=== PATIENT | female | born 1980 | race American Indian/Alaskan Native ===

== ENCOUNTER 2016-10-11 21:26 | Emergency (ER) | payer MEDICAID ==
[2016-10-11 21:33] VITALS: BP 105/68
--- NOTE | 2016-10-11 21:54 | EDM.PDOC ---
[id number] 4d CHEST PAINS, AMBULANCE Time Seen by Provider: 10/11/16 21:40 Source of Information: Reports: Patient, EMS History Limitations: Reports: No Limitations - History of Present Illness INITIAL COMMENTS - FREE TEXT/NARRATIVE: ED via [facility] with c/o pain now to left back. [place], felt something caught in her throat, vomited 3 times then had chest pain and now moved to her back. Admits meth use 2 weeks ago, ETOH 4 years ago. No cardiac hx. No similar episodes. 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 Musculoskeletal History: Reports: None Neurological History: Reports: None Psychiatric History: Reports: None Endocrine/Metabolic History: Reports: None Hematologic History: Reports: None Immunologic History: Reports: None Oncologic (Cancer) History: Reports: None Dermatologic History: Reports: None Social & Family History - Family History HEENT: Reports: None Cardiac: Reports: None Respiratory: Reports: None GI: Reports: None - Tobacco Use Smoking Status *Q: Heavy Tobacco Smoker Years of Tobacco use: 20 Packs/Tins Daily: 0.5 Used Tobacco, but Quit: No Month Tobacco Last Used: april Second Hand Smoke Exposure: Yes - Alcohol Use Days Per Week of Alcohol Use: 0 - Recreational Drug Use Recreational Drug Use: Yes Drug Use in Last 12 Months: Yes Recreational Drug Type: Reports: Methamphetamine Recreational Drug Use Frequency: Socially Recreational Drug Last Use: 4-14 ED ROS GENERAL - Review of Systems Review Of Systems: See Below Constitutional: Reports: No Symptoms HEENT: Reports: Throat Pain Respiratory: Reports: No Symptoms Cardiovascular: Reports: No Symptoms Endocrine: Reports: No Symptoms GI/Abdominal: Reports: No Symptoms Neurological: Reports: No Symptoms Psychiatric: Reports: No Symptoms Hematologic/Lymphatic: Reports: No Symptoms ED EXAM, GENERAL - Physical Exam Exam: See Below Exam Limited By: No Limitations General Appearance: Alert Ears: Normal External Exam Nose: Normal Inspection Throat/Mouth: Normal Inspection Head: Atraumatic, Normocephalic Neck: Normal Inspection Respiratory/Chest: No Respiratory Distress (Female) Exam: Normal External Exam, Normal Speculum Exam Extremities: Normal Inspection Neurological: Alert Course - Vital Signs Last Recorded V/S: Last Vital Signs Temp 97.0 F 10/11/16 21:29 Pulse 85 10/11/16 21:29 Resp 18 10/11/16 21:29 BP 105/68 10/11/16 21:29 Pulse Ox 97 10/11/16 21:29 - Orders/Labs/Meds Labs: Laboratory Tests 10/11/16 10/11/16 10/11/16 Range/Units 21:42 21:42 22:53 WBC 8.8 (5.0-10.0) 10^3/uL RBC 3.83 L (4.2-5.4) 10^6/uL Hgb 10.4 L (12.0-16.0) g/dL Hct 32.7 L (37.0-47.0) % MCV 85.4 (80-100) fL MCH 27.2 (27.0-34.0) pg MCHC 31.8 L (33.0-35.0) g/dL Plt Count 296 (150-450) 10^3/uL Neut % (Auto) 52.0 (42.2-75.2) % Lymph % (Auto) 36.7 (20.5-50.1) % [place] % (Auto) 9.4 H (2-8) % Eos % (Auto) 1.7 (1.0-3.0) % Baso % (Auto) 0.2 (0.0-1.0) % Sodium 141 (135-145) mmol/L Potassium 4.4 (3.6-5.0) mmol/L Chloride 108 (101-111) mmol/L Carbon Dioxide 26.0 (21.0-31.0) mmol/L Anion Gap 11.4 BUN 10 (7-18) mg/dL Creatinine 1.0 (0.6-1.3) mg/dL Est Cr Clr Drug Dosing TNP Estimated GFR (MDRD) > 60 BUN/Creatinine Ratio 10.00 Glucose 102 (74-105) mg/dL Calcium 8.6 (8.4-10.2) mg/dl Total Bilirubin 0.2 (0.2-1.0) mg/dL AST 31 (10-42) IU/L ALT 42 (10-60) IU/L Alkaline Phosphatase 77 (42-121) IU/L Troponin I < 0.02 (0.00-0.02) ng/ml Total Protein 7.1 (6.7-8.2) g/dl Albumin 3.5 (3.2-5.5) g/dl Globulin 3.6 Albumin/Globulin Ratio 0.97 Amylase 50 (28-100) U/L Lipase 26 (22-51) U/L Urine Color Yellow (YELLOW) Urine Appearance Clear (CLEAR) Urine pH 7.0 (5.0-9.0) Ur Specific [place] 1.020 (1.005-1.030) Urine Protein Negative (NEGATIVE) Urine Glucose (UA) Negative (NEGATIVE) Urine Ketones Trace H (NEGATIVE) Urine Occult Blood Negative (NEGATIVE) Urine Nitrite Negative (NEGATIVE) Urine Bilirubin Negative (NEGATIVE) Urine Urobilinogen 1.0 (0.2-1.0) mg/dL Ur Leukocyte Esterase Negative (NEGATIVE) Urine RBC 0-5 /HPF Urine WBC 0-5 (0-5/HPF) /HPF Ur Epithelial Cells Few /HPF Urine Bacteria Few (0-FEW/HPF) /HPF Urine Opiates Screen (NEGATIVE) Ur Oxycodone Screen (NEGATIVE) Urine Methadone Screen (NEGATIVE) Ur Barbiturates Screen (NEGATIVE) U Tricyclic Antidepress (NEGATIVE) Ur Phencyclidine Scrn (NEGATIVE) Ur Amphetamine Screen (NEGATIVE) U Methamphetamines Scrn (NEGATIVE) Urine MDMA Screen (NEGATIVE) U Benzodiazepines Scrn (NEGATIVE) Urine Cocaine Screen (NEGATIVE) U Marijuana (THC) Screen (NEGATIVE) Ethyl Alcohol < 5 mg/dL 10/11/16 Range/Units 22:53 WBC (5.0-10.0) 10^3/uL RBC (4.2-5.4) 10^6/uL Hgb (12.0-16.0) g/dL Hct (37.0-47.0) % MCV (80-100) fL MCH (27.0-34.0) pg MCHC (33.0-35.0) g/dL Plt Count (150-450) 10^3/uL Neut % (Auto) (42.2-75.2) % Lymph % (Auto) (20.5-50.1) % [place] % (Auto) (2-8) % Eos % (Auto) (1.0-3.0) % Baso % (Auto) (0.0-1.0) % Sodium (135-145) mmol/L Potassium (3.6-5.0) mmol/L Chloride (101-111) mmol/L Carbon Dioxide (21.0-31.0) mmol/L Anion Gap BUN (7-18) mg/dL Creatinine (0.6-1.3) mg/dL Est Cr Clr Drug Dosing Estimated GFR (MDRD) BUN/Creatinine Ratio Glucose (74-105) mg/dL Calcium (8.4-10.2) mg/dl Total Bilirubin (0.2-1.0) mg/dL AST (10-42) IU/L ALT (10-60) IU/L Alkaline Phosphatase (42-121) IU/L Troponin I (0.00-0.02) ng/ml Total Protein (6.7-8.2) g/dl Albumin (3.2-5.5) g/dl Globulin Albumin/Globulin Ratio Amylase (28-100) U/L Lipase (22-51) U/L Urine Color (YELLOW) Urine Appearance (CLEAR) Urine pH (5.0-9.0) Ur Specific [place] (1.005-1.030) Urine Protein (NEGATIVE) Urine Glucose (UA) (NEGATIVE) Urine Ketones (NEGATIVE) Urine Occult Blood (NEGATIVE) Urine Nitrite (NEGATIVE) Urine Bilirubin (NEGATIVE) Urine Urobilinogen (0.2-1.0) mg/dL Ur Leukocyte Esterase (NEGATIVE) Urine RBC /HPF Urine WBC (0-5/HPF) /HPF Ur Epithelial Cells /HPF Urine Bacteria (0-FEW/HPF) /HPF Urine Opiates Screen Negative (NEGATIVE) Ur Oxycodone Screen Negative (NEGATIVE) Urine Methadone Screen Negative (NEGATIVE) Ur Barbiturates Screen Negative (NEGATIVE) U Tricyclic Antidepress Negative (NEGATIVE) Ur Phencyclidine Scrn Negative (NEGATIVE) Ur Amphetamine Screen Negative (NEGATIVE) U Methamphetamines Scrn Positive H (NEGATIVE) Urine MDMA Screen Negative (NEGATIVE) U Benzodiazepines Scrn Negative (NEGATIVE) Urine Cocaine Screen Negative (NEGATIVE) U Marijuana (THC) Screen Negative (NEGATIVE) Ethyl Alcohol mg/dL Meds: Medications Discontinued Medications Generic Name Dose Route Start Last Admin Trade Name Daniella PRN Reason Stop Dose Admin Albuterol/Ipratropium 3 ml 10/11/16 23:11 10/11/16 23:16 Duoneb 3.0-0.5 Mg/3 Ml NEB 10/11/16 23:12 3 ml ONETIME ONE Administration Departure - Departure Time of Disposition: 23:26 Disposition: Home, Self-Care 01 Condition: Good Clinical Impression: Non-cardiac chest pain Instructions: Nonspecific Chest Pain, [id number] Forms: ED Department Discharge Additional Instructions: light soft low acid diet follow up as needed
[2016-10-11 22:16] LABS: CHLORIDE,CL 108 mmol/L (101-111); SODIUM,NA 141 mmol/L (135-145)
[2016-10-11] MEDS ORDERED: Albuterol/Ipratropium 3.0-0.5 MG/3 ML Neb Soln NEB ONE (23:11)
--- NOTE | 2016-10-13 09:43 | EKG ---
10/11/2016- RICHARD TAYLOR - EKG per my reading shows sinus rhythm at the rate of [address] changes. MOD /[id number]
== END 2016-10-11 23:30 | disposition home or self-care (01) ==
LOC: DL.ED 21:26
DX: R07.89 Other chest pain (principal); F17.210 Nicotine dependence, cigarettes, uncomplicated
CPT/HCPCS: 36415; 71010; 80053; 80305; 81001; 82150; 83690; 84484; 85025; 93005; 99285; G0480

== ENCOUNTER 2017-03-16 21:01 | Emergency (ER) | payer SELFPAY ==
[2017-03-16 21:44] LABS: CHLORIDE,CL 102 mmol/L (101-111); SODIUM,NA 139 mmol/L (135-145)
[2017-03-16] MEDS ORDERED: Sodium Chloride 0.9% 1,000 ML IV ONE (21:45)
[2017-03-16 21:46] LABS: ACETAMINOPHEN < 10
--- NOTE | 2017-03-16 21:50 | EDM.PDOC ---
ED HPI GENERAL MEDICAL PROBLEM - General Chief Complaint: Abdominal Pain Stated Complaint: ABD PAIN, CAME BY AMBULANCE Time Seen by Provider: 03/16/17 21:46 Source of Information: Reports: Patient History Limitations: Reports: No Limitations - History of Present Illness INITIAL COMMENTS - FREE TEXT/NARRATIVE: this 36 yo female patient reports to the ED by [facility] due to a 3 day history of nausea, vomiting, diarrhea and abdominal pain. The patient reports she has not been able to keep any food or drink down. The patient reports she noticed some blood in her stool x1 this evening causing her increased concern, so she called the ambulance. The patient was given Zofran ODT by EMS prior to arrival in the ED. Onset Date: 03/13/17 Duration: Constant, Getting Worse Location: Reports: Abdomen Quality: Reports: Ache, Sharp Severity: Severe Improves with: Reports: None Worsens with: Reports: None Associated Symptoms: Reports: Nausea/Vomiting, Other (diarrhea with blood in stool x1) Treatments PROMOTIONS SPECIALIST: Reports: NSAIDS (The patient reports taking Aleve (1500 mg) last dose this morning) Abdominal Pain Score (Numeric/FACES): 4 - Related Data Allergies Allergy/AdvReac Type Severity Reaction Status Date / Time No Known Allergies Allergy Verified 03/16/17 20:59 Home Meds: Home Meds . 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 Musculoskeletal History: Reports: None Neurological History: Reports: None Psychiatric History: Reports: None Endocrine/Metabolic History: Reports: None Hematologic History: Reports: None Immunologic History: Reports: None Oncologic (Cancer) History: Reports: None Dermatologic History: Reports: None Social & Family History - Family History HEENT: Reports: None Cardiac: Reports: None Respiratory: Reports: None GI: Reports: None - Tobacco Use Smoking Status *Q: Heavy Tobacco Smoker Years of Tobacco use: 20 Packs/Tins Daily: 0.5 Used Tobacco, but Quit: No Month Tobacco Last Used: april Second Hand Smoke Exposure: Yes - Alcohol Use Days Per Week of Alcohol Use: 0 - Recreational Drug Use Recreational Drug Use: Yes Drug Use in Last 12 Months: Yes Recreational Drug Type: Reports: Methamphetamine Recreational Drug Use Frequency: Socially Recreational Drug Last Use: 4-14 ED ROS GENERAL - Review of Systems Review Of Systems: ROS reveals no pertinent complaints other than HPI. ED EXAM, GI/ABD - Physical Exam Exam: See Below Exam Limited By: No Limitations General Appearance: Alert, Moderate Distress, Obese Eyes: Bilateral: Normal Appearance, EOMI Ears: Normal External Exam, Normal Canal, Hearing Grossly Normal, Normal TMs Nose: Normal Inspection, Normal Mucosa, No Blood Throat/Mouth: Normal Inspection, Normal Lips, Normal Teeth, Normal Gums, Normal Oropharynx, Normal Voice, No Airway Compromise Head: Atraumatic, Normocephalic Neck: Normal Inspection, Supple, Non-Tender, Full Range of Motion Respiratory/Chest: No Respiratory Distress, Lungs Clear, Normal Breath Sounds, No Accessory Muscle Use, Chest Non-Tender Cardiovascular: Normal Peripheral Pulses, Regular Rate, Rhythm, No Edema, No Gallop, No JVD, No Murmur, No Rub GI/Abdominal Exam: Normal Bowel Sounds, Soft, No Organomegaly, No Distention, No Abnormal Bruit, No Mass, Pelvis Stable, Tender (diffuse tenderness) (Female) Exam: Deferred Rectal (Female) Exam: Deferred Back Exam: Normal Inspection, Full Range of Motion, NT Extremities: Normal Inspection, Normal Range of Motion, Non-Tender, Normal Capillary Refill, No Pedal Edema Neurological: Alert, Oriented, CN II-XII Intact, Normal Cognition, Normal Gait, Normal Reflexes, No Motor/Sensory Deficits Psychiatric: Normal Affect, Normal Mood Skin Exam: Warm, Dry, Intact, Normal Color, No Rash Lymphatic: No Adenopathy Course - Vital Signs Last Recorded V/S: Last Vital Signs Temp 36.4 C 03/17/17 00:17 Pulse 85 03/17/17 00:17 Resp 16 03/17/17 00:17 BP 116/68 03/17/17 00:17 Pulse Ox 100 03/17/17 00:17 - Orders/Labs/Meds Orders: Active Orders 24 hr Category Date Time Status CULTURE BLOOD [BC] Stat Lab 03/16/17 21:40 Received CULTURE BLOOD [BC] Stat Lab 03/16/17 21:43 Results Blood Culture x2 Reflex Set [OM.PC] Stat Oth 03/16/17 21:00 Ordered Labs: Laboratory Tests 03/16/17 03/16/17 03/16/17 Range/Units 21:07 21:07 21:40 WBC 13.4 H (5.0-10.0) 10^3/uL RBC 4.26 (4.2-5.4) 10^6/uL Hgb 11.1 L (12.0-16.0) g/dL Hct 34.5 L (37.0-47.0) % MCV 81.0 D (80-100) fL MCH 26.1 L (27.0-34.0) pg MCHC 32.2 L (33.0-35.0) g/dL Plt Count 347 (150-450) 10^3/uL Neut % (Auto) 68.3 (42.2-75.2) % Lymph % (Auto) 18.5 L (20.5-50.1) % [place] % (Auto) 11.6 H (2-8) % Eos % (Auto) 1.4 (1.0-3.0) % Baso % (Auto) 0.2 (0.0-1.0) % Sodium 139 (135-145) mmol/L Potassium 3.6 (3.6-5.0) mmol/L Chloride 102 (101-111) mmol/L Carbon Dioxide 29.0 (21.0-31.0) mmol/L Anion Gap 11.6 BUN 6 L (7-18) mg/dL Creatinine 0.8 (0.6-1.3) mg/dL Est Cr Clr Drug Dosing 96.18 mL/min Estimated GFR (MDRD) > 60 BUN/Creatinine Ratio 7.50 Glucose 108 H (74-105) mg/dL Lactic Acid (0.5-2.2) mmol/L Calcium 9.1 (8.4-10.2) mg/dl Magnesium 2.0 (1.8-2.5) mg/dL Total Bilirubin 0.5 (0.2-1.0) mg/dL AST 27 (10-42) IU/L ALT 45 (10-60) IU/L Alkaline Phosphatase 87 (42-121) IU/L Ammonia 28 (11-35) umol/L Total Protein 7.5 (6.7-8.2) g/dl Albumin 3.7 (3.2-5.5) g/dl Globulin 3.8 Albumin/Globulin Ratio 0.97 Amylase 38 (28-100) U/L Lipase 18 L (22-51) U/L Urine Color (YELLOW) Urine Appearance (CLEAR) Urine pH (5.0-9.0) Ur Specific [place] (1.005-1.030) Urine Protein (NEGATIVE) Urine Glucose (UA) (NEGATIVE) Urine Ketones (NEGATIVE) Urine Occult Blood (NEGATIVE) Urine Nitrite (NEGATIVE) Urine Bilirubin (NEGATIVE) Urine Urobilinogen (0.2-1.0) mg/dL Ur Leukocyte Esterase (NEGATIVE) Urine RBC /HPF Urine WBC (0-5/HPF) /HPF Ur Epithelial Cells /HPF Calcium Oxalate Crystal /HPF Amorphous Sediment (0/HPF) /HPF Urine Bacteria (0-FEW/HPF) /HPF Urine Mucus /LPF Urine HCG, Qual Salicylates < 4 Urine Opiates Screen (NEGATIVE) Ur Oxycodone Screen (NEGATIVE) Urine Methadone Screen (NEGATIVE) Acetaminophen < 10 Ur Barbiturates Screen (NEGATIVE) U Tricyclic Antidepress (NEGATIVE) Ur Phencyclidine Scrn (NEGATIVE) Ur Amphetamine Screen (NEGATIVE) U Methamphetamines Scrn (NEGATIVE) Urine MDMA Screen (NEGATIVE) U Benzodiazepines Scrn (NEGATIVE) Urine Cocaine Screen (NEGATIVE) U Marijuana (THC) Screen (NEGATIVE) Ethyl Alcohol 5 mg/dL 03/16/17 03/16/17 03/16/17 Range/Units 21:40 23:00 23:00 WBC (5.0-10.0) 10^3/uL RBC (4.2-5.4) 10^6/uL Hgb (12.0-16.0) g/dL Hct (37.0-47.0) % MCV (80-100) fL MCH (27.0-34.0) pg MCHC (33.0-35.0) g/dL Plt Count (150-450) 10^3/uL Neut % (Auto) (42.2-75.2) % Lymph % (Auto) (20.5-50.1) % [place] % (Auto) (2-8) % Eos % (Auto) (1.0-3.0) % Baso % (Auto) (0.0-1.0) % Sodium (135-145) mmol/L Potassium (3.6-5.0) mmol/L Chloride (101-111) mmol/L Carbon Dioxide (21.0-31.0) mmol/L Anion Gap BUN (7-18) mg/dL Creatinine (0.6-1.3) mg/dL Est Cr Clr Drug Dosing mL/min Estimated GFR (MDRD) BUN/Creatinine Ratio Glucose (74-105) mg/dL Lactic Acid 1.2 (0.5-2.2) mmol/L Calcium (8.4-10.2) mg/dl Magnesium (1.8-2.5) mg/dL Total Bilirubin (0.2-1.0) mg/dL AST (10-42) IU/L ALT (10-60) IU/L Alkaline Phosphatase (42-121) IU/L Ammonia (11-35) umol/L Total Protein (6.7-8.2) g/dl Albumin (3.2-5.5) g/dl Globulin Albumin/Globulin Ratio Amylase (28-100) U/L Lipase (22-51) U/L Urine Color (YELLOW) Urine Appearance (CLEAR) Urine pH (5.0-9.0) Ur Specific [place] (1.005-1.030) Urine Protein (NEGATIVE) Urine Glucose (UA) (NEGATIVE) Urine Ketones (NEGATIVE) Urine Occult Blood (NEGATIVE) Urine Nitrite (NEGATIVE) Urine Bilirubin (NEGATIVE) Urine Urobilinogen (0.2-1.0) mg/dL Ur Leukocyte Esterase (NEGATIVE) Urine RBC /HPF Urine WBC (0-5/HPF) /HPF Ur Epithelial Cells /HPF Calcium Oxalate Crystal /HPF Amorphous Sediment (0/HPF) /HPF Urine Bacteria (0-FEW/HPF) /HPF Urine Mucus /LPF Urine HCG, Qual Negative Salicylates Urine Opiates Screen Negative (NEGATIVE) Ur Oxycodone Screen Negative (NEGATIVE) Urine Methadone Screen Negative (NEGATIVE) Acetaminophen Ur Barbiturates Screen Negative (NEGATIVE) U Tricyclic Antidepress Negative (NEGATIVE) Ur Phencyclidine Scrn Negative (NEGATIVE) Ur Amphetamine Screen Positive H (NEGATIVE) U Methamphetamines Scrn Positive H (NEGATIVE) Urine MDMA Screen Negative (NEGATIVE) U Benzodiazepines Scrn Negative (NEGATIVE) Urine Cocaine Screen Negative (NEGATIVE) U Marijuana (THC) Screen Negative (NEGATIVE) Ethyl Alcohol mg/dL 03/16/17 Range/Units 23:00 WBC (5.0-10.0) 10^3/uL RBC (4.2-5.4) 10^6/uL Hgb (12.0-16.0) g/dL Hct (37.0-47.0) % MCV (80-100) fL MCH (27.0-34.0) pg MCHC (33.0-35.0) g/dL Plt Count (150-450) 10^3/uL Neut % (Auto) (42.2-75.2) % Lymph % (Auto) (20.5-50.1) % [place] % (Auto) (2-8) % Eos % (Auto) (1.0-3.0) % Baso % (Auto) (0.0-1.0) % Sodium (135-145) mmol/L Potassium (3.6-5.0) mmol/L Chloride (101-111) mmol/L Carbon Dioxide (21.0-31.0) mmol/L Anion Gap BUN (7-18) mg/dL Creatinine (0.6-1.3) mg/dL Est Cr Clr Drug Dosing mL/min Estimated GFR (MDRD) BUN/Creatinine Ratio Glucose (74-105) mg/dL Lactic Acid (0.5-2.2) mmol/L Calcium (8.4-10.2) mg/dl Magnesium (1.8-2.5) mg/dL Total Bilirubin (0.2-1.0) mg/dL AST (10-42) IU/L ALT (10-60) IU/L Alkaline Phosphatase (42-121) IU/L Ammonia (11-35) umol/L Total Protein (6.7-8.2) g/dl Albumin (3.2-5.5) g/dl Globulin Albumin/Globulin Ratio Amylase (28-100) U/L Lipase (22-51) U/L Urine Color Yellow (YELLOW) Urine Appearance Cloudy (CLEAR) Urine pH 6.5 (5.0-9.0) Ur Specific [place] 1.025 (1.005-1.030) Urine Protein Negative (NEGATIVE) Urine Glucose (UA) Negative (NEGATIVE) Urine Ketones Negative (NEGATIVE) Urine Occult Blood Moderate H (NEGATIVE) Urine Nitrite Negative (NEGATIVE) Urine Bilirubin Negative (NEGATIVE) Urine Urobilinogen 0.2 (0.2-1.0) mg/dL Ur Leukocyte Esterase Negative (NEGATIVE) Urine RBC 5-10 H /HPF Urine WBC 0-5 (0-5/HPF) /HPF Ur Epithelial Cells Few /HPF Calcium Oxalate Crystal Moderate H /HPF Amorphous Sediment Few (0/HPF) /HPF Urine Bacteria Rare (0-FEW/HPF) /HPF Urine Mucus Moderate H /LPF Urine HCG, Qual Salicylates Urine Opiates Screen (NEGATIVE) Ur Oxycodone Screen (NEGATIVE) Urine Methadone Screen (NEGATIVE) Acetaminophen Ur Barbiturates Screen (NEGATIVE) U Tricyclic Antidepress (NEGATIVE) Ur Phencyclidine Scrn (NEGATIVE) Ur Amphetamine Screen (NEGATIVE) U Methamphetamines Scrn (NEGATIVE) Urine MDMA Screen (NEGATIVE) U Benzodiazepines Scrn (NEGATIVE) Urine Cocaine Screen (NEGATIVE) U Marijuana (THC) Screen (NEGATIVE) Ethyl Alcohol mg/dL Meds: Medications Discontinued Medications Generic Name Dose Route Start Last Admin Trade Name Freq PRN Reason Stop Dose Admin Sodium Chloride 1,000 mls @ 999 mls/hr 03/16/17 21:45 03/16/17 21:50 Normal Saline IV 03/16/17 22:45 999 mls/hr .BOLUS ONE Administration Iopamidol 100 ml 03/16/17 23:46 03/17/17 00:16 Isovue-300 (61%) IVPUSH 03/16/17 23:47 100 ml ONETIME ONE Administration Departure - Departure Time of Disposition: 00:35 Disposition: Against Medical Advice 07 Condition: Undetermined Clinical Impression: Abdominal pain Qualifiers: Abdominal location: epigastric Qualified Code(s): R10.13 - Epigastric pain - Discharge Information Forms: ED Department Discharge Care Plan Goals: This patient left after getting a CT scan of her abdomen while waiting for results. The patient was spoken to by one of the ED nurses, but refused to return to the ED. - My Orders Last 24 Hours: My Active Orders 03/16/17 21:00 Blood Culture x2 Reflex Set [OM.PC] Stat 03/16/17 21:40 CULTURE BLOOD [BC] Stat 03/16/17 21:43 CULTURE BLOOD [BC] Stat - Assessment/Plan Last 24 Hours: My Active Orders 03/16/17 21:00 Blood Culture x2 Reflex Set [OM.PC] Stat 03/16/17 21:40 CULTURE BLOOD [BC] Stat 03/16/17 21:43 CULTURE BLOOD [BC] Stat
[2017-03-16] MEDS ORDERED: Iopamidol 612 MG/ML 100 ML Bottle IVPUSH ONE (23:46)
[2017-03-17 00:18] VITALS: BP 116/68
== END 2017-03-17 00:35 | disposition left against medical advice (07) ==
LOC: DL.ED 21:01
DX: R10.13 Epigastric pain (principal); F17.210 Nicotine dependence, cigarettes, uncomplicated
CPT/HCPCS: 36415; 74177; 80053; 80305; 81001; 81025; 82140; 82150; 83605; 83690; 83735; 85025; 87040; 87804; 96365; 99285; G0480; J7030; Q9967; 99284

== ENCOUNTER 2017-03-17 12:47 | Emergency (ER) | payer SELFPAY ==
[2017-03-17] MEDS ORDERED: Sodium Chloride 0.9% 1,000 ML IV ONE ×2 (13:20→14:38)
[2017-03-17] MEDS ORDERED: Ondansetron 4 MG/2 ML SDV IV ONE (13:20)
--- NOTE | 2017-03-17 13:23 | EDM.PDOC ---
ED HPI GENERAL MEDICAL PROBLEM - General Chief Complaint: Abdominal Pain Stated Complaint: ABD PAIN, SENT FROM [facility] Time Seen by Provider: 03/17/17 13:23 Source of Information: Reports: Patient, Old Records, RN, RN Notes Reviewed History Limitations: Reports: No Limitations - History of Present Illness INITIAL COMMENTS - FREE TEXT/NARRATIVE: Arrives from home by POV with c/o several days of generalized lower abdominal pain with diarrhea. Two days ago she developed nausea and vomiting as well. Denies any known sick exposure, recent antibiotic tx, or suspicion of bad food. Pt seen here last night and had a complete exam and work up including lab and CT abd/pelvis, but left after the CT because it was taking too long. She denies fever, but has had a few chills off and on. She is unsure if she had any blood in her stool, but thinks maybe a little bit of red blood streak. Onset: Gradual Onset Date: 03/14/17 Duration: Constant Location: Reports: Abdomen Quality: Reports: Ache (and cramping) Severity: Severe Improves with: Reports: None Worsens with: Reports: None Associated Symptoms: Reports: No Other Symptoms Abdominal Pain Score (Numeric/FACES): 10 - Related Data Allergies Allergy/AdvReac Type Severity Reaction Status Date / Time No Known Allergies Allergy Verified 03/16/17 20:59 Home Meds: Home Meds . [No Known Home Meds] 05/27/15 [History] Past Medical History - Past Health History Medical/Surgical History: Denies Medical/Surgical History HEENT History: Reports: None Cardiovascular History: Reports: None Respiratory History: Reports: None Gastrointestinal History: Reports: None WEL[employer] FAB History: Reports: None Musculoskeletal History: Reports: None Neurological History: Reports: None Psychiatric History: Reports: None Endocrine/Metabolic History: Reports: None Hematologic History: Reports: None Immunologic History: Reports: None Oncologic (Cancer) History: Reports: None Dermatologic History: Reports: None - Infectious Disease History Infectious Disease History: Reports: Hepatitis C Social & Family History - Family History Family Medical History: Noncontributory HEENT: Reports: None Cardiac: Reports: None Respiratory: Reports: None GI: Reports: None - Tobacco Use Smoking Status *Q: Heavy Tobacco Smoker Years of Tobacco use: 20 Packs/Tins Daily: 0.5 Used Tobacco, but Quit: No Month Tobacco Last Used: april Second Hand Smoke Exposure: Yes - Caffeine Use Caffeine Use: Reports: Coffee - Alcohol Use Days Per Week of Alcohol Use: 0 - Recreational Drug Use Recreational Drug Use: Yes Drug Use in Last 12 Months: Yes Recreational Drug Type: Reports: Methamphetamine Recreational Drug Use Frequency: Socially Recreational Drug Last Use: 4-14 - Living Situation & Occupation Living situation: Reports: with Family ED ROS GENERAL - Review of Systems Review Of Systems: ROS reveals no pertinent complaints other than HPI. ED EXAM, GI/ABD - Physical Exam Exam: See Below Exam Limited By: No Limitations General Appearance: Alert, WD/WN, No Apparent Distress Eyes: Bilateral: Normal Appearance Nose: Normal Inspection Throat/Mouth: Normal Lips, Normal Teeth, Normal Gums, Normal Oropharynx, Normal Voice, No Airway Compromise, Other (dry oral membranes) Head: Atraumatic, Normocephalic Neck: Normal Inspection, Supple, Non-Tender, Full Range of Motion Respiratory/Chest: No Respiratory Distress, Lungs Clear, Normal Breath Sounds, No Accessory Muscle Use, Chest Non-Tender Cardiovascular: Normal Peripheral Pulses, Regular Rate, Rhythm, No Edema, No Gallop, No JVD, No Murmur, No Rub GI/Abdominal Exam: Normal Bowel Sounds, Soft, No Distention, No Abnormal Bruit, Tender (generalized lower abd. tenderness to palp.). No: Guarding, Rigid, Rebound (Female) Exam: Deferred Rectal (Female) Exam: Deferred Back Exam: Normal Inspection, Full Range of Motion. No: CVA Tenderness (L), CVA Tenderness (R) Extremities: Normal Inspection, Normal Range of Motion, Non-Tender, Normal Capillary Refill, No Pedal Edema Neurological: Alert, Oriented, CN II-XII Intact, Normal Cognition, Normal Gait, No Motor/Sensory Deficits Psychiatric: Normal Affect, Normal Mood Skin Exam: Warm, Dry, Intact, Normal Color, No Rash Course - Vital Signs Last Recorded V/S: Last Vital Signs Temp 37.0 C 03/17/17 15:09 Pulse 89 03/17/17 15:09 Resp 14 03/17/17 15:09 BP 108/63 03/17/17 15:09 Pulse Ox 99 03/17/17 15:09 - Orders/Labs/Meds Orders: Active Orders 24 hr Category Date Time Status Sodium Chloride 0.9% [Normal Saline] 1,000 ml Med 03/17/17 14:38 Active IV .BOLUS Medication Orders Sodium Chloride (Normal Saline) 1,000 mls @ 999 mls/hr IV .BOLUS ONE Stop: 03/17/17 15:38 Last Admin: 03/17/17 15:00 Dose: 999 mls/hr Labs: Laboratory Tests 03/17/17 03/17/17 03/17/17 Range/Units 13:20 13:20 13:28 WBC 10.5 H (5.0-10.0) 10^3/uL RBC 4.21 (4.2-5.4) 10^6/uL Hgb 11.1 L (12.0-16.0) g/dL Hct 34.3 L (37.0-47.0) % MCV 81.5 (80-100) fL MCH 26.4 L (27.0-34.0) pg MCHC 32.4 L (33.0-35.0) g/dL Plt Count 336 (150-450) 10^3/uL Neut % (Auto) 60.0 (42.2-75.2) % Lymph % (Auto) 24.1 (20.5-50.1) % [place] % (Auto) 14.3 H (2-8) % Eos % (Auto) 1.3 (1.0-3.0) % Baso % (Auto) 0.3 (0.0-1.0) % ESR (0-20) mm/hr Sodium (135-145) mmol/L Potassium (3.6-5.0) mmol/L Chloride (101-111) mmol/L Carbon Dioxide (21.0-31.0) mmol/L Anion Gap BUN (7-18) mg/dL Creatinine (0.6-1.3) mg/dL Est Cr Clr Drug Dosing Estimated GFR (MDRD) BUN/Creatinine Ratio Glucose (74-105) mg/dL Calcium (8.4-10.2) mg/dl Total Bilirubin (0.2-1.0) mg/dL AST (10-42) IU/L ALT (10-60) IU/L Alkaline Phosphatase (42-121) IU/L C-Reactive Protein (0.0-1.3) mg/dL Total Protein (6.7-8.2) g/dl Albumin (3.2-5.5) g/dl Globulin Albumin/Globulin Ratio Urine Color Red (YELLOW) Urine Appearance Cloudy (CLEAR) Urine pH 7.0 (5.0-9.0) Ur Specific [place] 1.020 (1.005-1.030) Urine Protein 100 H (NEGATIVE) Urine Glucose (UA) Negative (NEGATIVE) Urine Ketones Negative (NEGATIVE) Urine Occult Blood Large H (NEGATIVE) Urine Nitrite Negative (NEGATIVE) Urine Bilirubin Negative (NEGATIVE) Urine Urobilinogen 0.2 (0.2-1.0) mg/dL Ur Leukocyte Esterase Negative (NEGATIVE) Urine RBC Packed H /HPF Urine WBC 0-5 (0-5/HPF) /HPF Ur Epithelial Cells Few /HPF Amorphous Sediment Few (0/HPF) /HPF Urine Bacteria Few (0-FEW/HPF) /HPF Urine Mucus Few H /LPF Urine HCG, Qual Negative 03/17/17 03/17/17 03/17/17 Range/Units 13:28 13:28 13:28 WBC (5.0-10.0) 10^3/uL RBC (4.2-5.4) 10^6/uL Hgb (12.0-16.0) g/dL Hct (37.0-47.0) % MCV (80-100) fL MCH (27.0-34.0) pg MCHC (33.0-35.0) g/dL Plt Count (150-450) 10^3/uL Neut % (Auto) (42.2-75.2) % Lymph % (Auto) (20.5-50.1) % [place] % (Auto) (2-8) % Eos % (Auto) (1.0-3.0) % Baso % (Auto) (0.0-1.0) % ESR 14 (0-20) mm/hr Sodium 137 (135-145) mmol/L Potassium 3.4 L (3.6-5.0) mmol/L Chloride 102 (101-111) mmol/L Carbon Dioxide 27.0 (21.0-31.0) mmol/L Anion Gap 11.4 BUN 4 L (7-18) mg/dL Creatinine 0.8 (0.6-1.3) mg/dL Est Cr Clr Drug Dosing TNP Estimated GFR (MDRD) > 60 BUN/Creatinine Ratio 5.00 Glucose 97 (74-105) mg/dL Calcium 8.8 (8.4-10.2) mg/dl Total Bilirubin 0.5 (0.2-1.0) mg/dL AST 26 (10-42) IU/L ALT 43 (10-60) IU/L Alkaline Phosphatase 85 (42-121) IU/L C-Reactive Protein 2.8 H (0.0-1.3) mg/dL Total Protein 7.6 (6.7-8.2) g/dl Albumin 3.7 (3.2-5.5) g/dl Globulin 3.9 Albumin/Globulin Ratio 0.95 Urine Color (YELLOW) Urine Appearance (CLEAR) Urine pH (5.0-9.0) Ur Specific [place] (1.005-1.030) Urine Protein (NEGATIVE) Urine Glucose (UA) (NEGATIVE) Urine Ketones (NEGATIVE) Urine Occult Blood (NEGATIVE) Urine Nitrite (NEGATIVE) Urine Bilirubin (NEGATIVE) Urine Urobilinogen (0.2-1.0) mg/dL Ur Leukocyte Esterase (NEGATIVE) Urine RBC /HPF Urine WBC (0-5/HPF) /HPF Ur Epithelial Cells /HPF Amorphous Sediment (0/HPF) /HPF Urine Bacteria (0-FEW/HPF) /HPF Urine Mucus /LPF Urine HCG, Qual Meds: Medications Generic Name Dose Route Start Last Admin Trade Name Freq PRN Reason Stop Dose Admin Sodium Chloride 1,000 mls @ 999 mls/hr 03/17/17 14:38 03/17/17 15:00 Normal Saline IV 03/17/17 15:38 999 mls/hr .BOLUS ONE Administration Discontinued Medications Generic Name Dose Route Start Last Admin Trade Name Freq PRN Reason Stop Dose Admin Dexamethasone 10 mg 03/17/17 14:40 03/17/17 15:05 Dexamethasone IVPUSH 03/17/17 14:41 10 mg ONETIME ONE Administration Hydromorphone HCl 1 mg 03/17/17 14:38 03/17/17 15:02 Dilaudid IVPUSH 03/17/17 14:39 1 mg ONETIME ONE Administration Sodium Chloride 1,000 mls @ 999 mls/hr 03/17/17 13:20 03/17/17 13:39 Normal Saline IV 03/17/17 14:20 999 mls/hr .BOLUS ONE Administration Ondansetron HCl 4 mg 03/17/17 13:20 03/17/17 13:42 Zofran IV 03/17/17 13:21 4 mg ONETIME ONE Administration - Radiology Interpretation Free Text/Narrative:: Reviewed CT abb/pelvis report from last evenings visit: colitis per Rad report. Departure - Departure Time of Disposition: 15:22 Disposition: Home, Self-Care 01 Condition: Good Clinical Impression: Colitis - Discharge Information Instructions: Colitis Forms: ED Department Discharge Additional Instructions: Clear liquid diet until nausea resolves, then advance to soft bland diet. Abstain from drug abuse. Rx: Bentyl 20mg *Do not drive while under the influence of this medication. Rx: Zofran 4mg Follow up in clinic next week for recheck, and consideration of possible referral for colonoscopy. - My Orders Last 24 Hours: My Active Orders 03/17/17 14:38 Sodium Chloride 0.9% [Normal Saline] 1,000 ml IV .BOLUS - Assessment/Plan Last 24 Hours: My Active Orders 03/17/17 14:38 Sodium Chloride 0.9% [Normal Saline] 1,000 ml IV .BOLUS
[2017-03-17 13:57] LABS: CHLORIDE,CL 102 mmol/L (101-111); SODIUM,NA 137 mmol/L (135-145)
[2017-03-17] MEDS ORDERED: HYDROmorphone 1 MG/ML Syringe IVPUSH ONE (14:38)
[2017-03-17] MEDS ORDERED: Dexamethasone 4 MG/ML SDV IVPUSH ONE (14:40)
[2017-03-17 15:10] VITALS: BP 108/63
== END 2017-03-17 16:00 | disposition home or self-care (01) ==
LOC: DL.ED 12:47
DX: K52.9 Noninfective gastroenteritis and colitis, unspecified (principal); F17.210 Nicotine dependence, cigarettes, uncomplicated
CPT/HCPCS: 36415; 80053; 81001; 81025; 85025; 85651; 86140; 96361; 96374; 96375; 99284; J1100; J1170; J2405; J7030

== ENCOUNTER 2017-05-25 17:48 | Emergency (ER) | payer MEDICAID ==
[2017-05-25 18:58] VITALS: BP 121/85
--- NOTE | 2017-05-25 19:15 | EDM.PDOC ---
ED HPI GENERAL MEDICAL PROBLEM - General Chief Complaint: ENT Problem Stated Complaint: SICK Time Seen by Provider: 05/25/17 19:00 Source of Information: Reports: Patient History Limitations: Reports: No Limitations - History of Present Illness INITIAL COMMENTS - FREE TEXT/NARRATIVE: cough, sore throat body aches and chills starting this am. Fine yesterday. Cough productive, green phlegm. Child with same symptoms also. - Related Data Allergies Allergy/AdvReac Type Severity Reaction Status Date / Time No Known Allergies Allergy Verified 05/25/17 18:58 Home Meds: Home Meds . 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 Musculoskeletal History: Reports: None Neurological History: Reports: None Psychiatric History: Reports: None Endocrine/Metabolic History: Reports: None Hematologic History: Reports: None Immunologic History: Reports: None Oncologic (Cancer) History: Reports: None Dermatologic History: Reports: None - Infectious Disease History Infectious Disease History: Reports: Hepatitis C Social & Family History - Family History Family Medical History: Noncontributory HEENT: Reports: None Cardiac: Reports: None Respiratory: Reports: None GI: Reports: None - Tobacco Use Smoking Status *Q: Current Every Day Smoker Years of Tobacco use: 20 Packs/Tins Daily: 0.1 Used Tobacco, but Quit: No Month/Year Tobacco Last Used: april Second Hand Smoke Exposure: Yes - Caffeine Use Caffeine Use: Reports: Coffee - Alcohol Use Days Per Week of Alcohol Use: 0 - Recreational Drug Use Recreational Drug Use: Yes Drug Use in Last 12 Months: Yes Recreational Drug Type: Reports: Methamphetamine Recreational Drug Use Frequency: Socially Recreational Drug Last Use: 4-14 - Living Situation & Occupation Living situation: Reports: with Family ED ROS ENT - Review of Systems Review Of Systems: See Below Constitutional: Reports: Fever HEENT: Reports: Throat Pain Respiratory: Reports: Cough, Sputum (green) Endocrine: Reports: No Symptoms GI/Abdominal: Reports: No Symptoms : Reports: No Symptoms Musculoskeletal: Reports: Other (generalized aches) Skin: Reports: No Symptoms Neurological: Reports: No Symptoms ED EXAM, ENT - Physical Exam Exam: See Below Exam Limited By: No Limitations General Appearance: Alert, No Apparent Distress Eye Exam: Bilateral Eye: EOMI Ears: Normal External Exam, Normal Canal Nose: Nasal Discharge (scant yellow) Mouth/Throat: Normal Inspection Head: Atraumatic, Normocephalic Neck: Normal Inspection, Full Range of Motion. No: Lymphadenopathy (L), Lymphadenopathy (R) Respiratory/Chest: No Respiratory Distress, Lungs Clear, Normal Breath Sounds, Other (loose cough) Cardiovascular: Normal Peripheral Pulses, Regular Rate, Rhythm GI/Abdominal: Soft Back: Normal Inspection, Full Range of Motion Extremities: Normal Inspection, Normal Range of Motion Neurological: Alert, Oriented, Normal Cognition Psychiatric: Normal Affect Skin: Warm, Dry, Intact, Normal Color Course - Vital Signs Last Recorded V/S: Last Vital Signs Temp 97.3 F 05/25/17 18:56 Pulse 89 05/25/17 18:56 Resp 18 05/25/17 18:56 BP 121/85 05/25/17 18:56 Pulse Ox 99 05/25/17 18:56 - Orders/Labs/Meds Meds: Medications Discontinued Medications Generic Name Dose Route Start Last Admin Trade Name Daniella PRN Reason Stop Dose Admin Amoxicillin 500 mg 05/25/17 19:48 05/25/17 19:51 Amoxil PO 05/25/17 19:49 500 mg ONETIME ONE Administration - Re-Assessments/Exams Free Text/Narrative Re-Assessment/Exam: Son testing positive for strep. Departure - Departure Time of Disposition: 19:46 Disposition: Home, Self-Care 01 Condition: Good Clinical Impression: Pharyngitis Qualifiers: Pharyngitis/tonsillitis etiology: unspecified etiology Qualified Code(s): J02.9 - Acute pharyngitis, unspecified URI (upper respiratory infection) Qualifiers: URI type: unspecified URI Qualified Code(s): J06.9 - Acute upper respiratory infection, unspecified - Discharge Information Instructions: Strep Throat, [id number] Referrals: Shaunna Smith MD [Primary Care Provider] - Forms: ED Department Discharge Additional Instructions: amoxicillin 500mg one three times daily for 10 days tylenol or ibuprofen for fever, aches robitussin per label for cough congestion ( available over counter0 increase fluid intake
[2017-05-25] MEDS: Amoxicillin 500 MG Cap PO ONE (19:51)
== END 2017-05-25 19:56 | disposition home or self-care (01) ==
LOC: DL.ED 17:48
DX: J02.9 Acute pharyngitis, unspecified (principal); J06.9 Acute upper respiratory infection, unspecified; F17.210 Nicotine dependence, cigarettes, uncomplicated
CPT/HCPCS: 87804; 99283; A9270

== ENCOUNTER 2017-08-13 13:49 | Emergency (ER) | payer OTHER, MEDICAID ==
[2017-08-13] MEDS ORDERED: Diphtheria,Pertussis(Acell),Tetanus Vaccine 0.5 ML SDV IM ONE (15:40)
[2017-08-13] MEDS ORDERED: Bacitracin Oint 1 GM U/D Packet TOP ONE (15:41)
[2017-08-13] MEDS ORDERED: Lidocaine 1% 30 ML SDV INJECT ONE (15:41)
[2017-08-13 15:44] VITALS: BP 113/59
--- NOTE | 2017-08-13 17:11 | EDM.PDOC ---
Scribed by Adrienne Rodriguez 08/13/17 [id number] for Lázaro Hanna MD ED HPI GENERAL MEDICAL PROBLEM - General Chief Complaint: Lower Extremity Injury/Pain Stated Complaint: LACERATION RT LEG Time Seen by Provider: 08/13/17 15:30 Source of Information: Reports: Patient, RN, RN Notes Reviewed History Limitations: Reports: No Limitations - History of Present Illness INITIAL COMMENTS - FREE TEXT/NARRATIVE: C/O cut Rt thigh on a broken mirror just prior to arrival. Denies any other injury. Last tetanus >10yrs ago per pt. Onset: Today Duration: Constant Location: Reports: Lower Extremity, Right Quality: Reports: Ache Severity: Mild Improves with: Reports: None Worsens with: Reports: None Associated Symptoms: Reports: No Other Symptoms Right Upper Leg Pain Score (Numeric/FACES): 1 - Related Data Allergies Allergy/AdvReac Type Severity Reaction Status Date / Time No Known Allergies Allergy Verified 05/25/17 18:58 Home Meds: Home Meds Ferrous Sulfate [Iron] 325 mg PO BID 08/13/17 [History] Past Medical History - Past Health History Medical/Surgical History: Denies Medical/Surgical History HEENT History: Reports: None, Impaired Vision Cardiovascular History: Reports: None Respiratory History: Reports: None Gastrointestinal History: Reports: None FOREPART LASTER History: Reports: None Musculoskeletal History: Reports: None Neurological History: Reports: None Psychiatric History: Reports: None Endocrine/Metabolic History: Reports: None Hematologic History: Reports: None Immunologic History: Reports: None Oncologic (Cancer) History: Reports: None Dermatologic History: Reports: None - Infectious Disease History Infectious Disease History: Reports: Hepatitis C - Past Surgical History Musculoskeletal Surgical History: Reports: Other (See Below) Other Musculoskeletal Surgeries/Procedures:: left ankle surgery Social & Family History - Family History Family Medical History: Noncontributory HEENT: Reports: None Cardiac: Reports: None Respiratory: Reports: None GI: Reports: None - Tobacco Use Smoking Status *Q: Current Every Day Smoker Years of Tobacco use: 15 Packs/Tins Daily: 0.5 - Caffeine Use Caffeine Use: Reports: Coffee, Soda, Tea - Recreational Drug Use Recreational Drug Use: No - Living Situation & Occupation Living situation: Reports: with Family Review of Systems - Review of Systems Review Of Systems: ROS reveals no pertinent complaints other than HPI. ED EXAM, GENERAL - Physical Exam Exam: See Below Exam Limited By: No Limitations General Appearance: Alert, WD/WN, No Apparent Distress Head: Atraumatic, Normocephalic Respiratory/Chest: No Respiratory Distress Cardiovascular: Normal Peripheral Pulses Extremities: Normal Range of Motion, Normal Capillary Refill, Other (6cm linear laceration to Rt mid anterior thigh, no active bleeding, no FB) Neurological: Alert, Oriented, No Motor/Sensory Deficits Psychiatric: Normal Mood Skin Exam: Warm, Dry ED TRAUMA EXTREMITY PROCEDURES - Laceration/Wound Repair Left Anterior Thigh Lac/Wound Length In cm: 6 Appearance: Subcutaneous, Linear, Clean Distal NVT: Neuro & Vascular Intact, No Tendon Injury Anesthetic Type: Local Local Anesthesia - Lidocaine (Xylocaine): 1% Plain Local Anesthetic Volume: Other (20) Skin Prep: Chlorhexidine (Hibiciens), Saline, Sterile Drape Saline Irrigation (cc's): 1,000 Exploration/Debridement/Repair: Wound Explored, In a Bloodless Field, Explored to Base, Minimal Debridement, Minimally Undermined Closed With: Sutures Suture Size: 3-0 # of Sutures: 11 Suture Type: Nylon, Running Drain Placement: No Sterile Dressing Applied: Nurse Tetanus Status Addressed: Yes Complications: No Course - Vital Signs Last Recorded V/S: Last Vital Signs Temp 36.4 C 08/13/17 15:43 Pulse 84 08/13/17 15:43 Resp 20 08/13/17 15:43 BP 113/59 L 08/13/17 15:43 Pulse Ox 100 08/13/17 15:43 - Orders/Labs/Meds Orders: Active Orders 24 hr Category Date Time Status Vaccines to be Administered [RC] PER UNIT ROUTINE Care 08/13/17 15:40 Active Meds: Medications Discontinued Medications Generic Name Dose Route Start Last Admin Trade Name Freq PRN Reason Stop Dose Admin Bacitracin 1 dose 08/13/17 15:41 08/13/17 15:58 Bacitracin Oint 1 Gm TOP 08/13/17 15:42 1 dose ONETIME ONE Administration Diphtheria/Tetanus/Acell Pertussis 0.5 ml 08/13/17 15:40 08/13/17 15:56 Adacel IM 08/13/17 15:41 0.5 ml .ONCE ONE Administration Lidocaine HCl 30 ml 08/13/17 15:41 08/13/17 16:01 Xylocaine-Mpf 1% INJECT 08/13/17 15:42 30 ml ONETIME ONE Administration Departure - Departure Time of Disposition: 17:06 Disposition: Home, Self-Care 01 Condition: Good Clinical Impression: Laceration of right thigh Qualifiers: Encounter type: initial encounter Qualified Code(s): S71.111A - Laceration without foreign body, right thigh, initial encounter - Discharge Information Instructions: Sutured Wound Care Forms: ED Department Discharge Additional Instructions: Follow up in clinic for suture removal in 7 to 10 days. Return to ER if any signs of wound infection develop. - My Orders Last 24 Hours: My Active Orders 08/13/17 15:40 Vaccines to be Administered [RC] PER UNIT ROUTINE - Assessment/Plan Last 24 Hours: My Active Orders 08/13/17 15:40 Vaccines to be Administered [RC] PER UNIT ROUTINE I have read and agree with the documentation that has been completed regarding this visit. By signing this record, I attest that the documentation was completed in my physical presence and is an accurate record of the encounter.
== END 2017-08-13 17:13 | disposition home or self-care (01) ==
LOC: DL.ED 13:49
DX: S71.111A Laceration without foreign body, right thigh, initial encounter (principal); F17.210 Nicotine dependence, cigarettes, uncomplicated; Z23 Encounter for immunization; W26.8XXA Contact with other sharp object(s), not elsewhere classified, initial encounter
CPT/HCPCS: 12002; 90471; 90715; 99283

== ENCOUNTER 2018-04-07 18:40 | Observation (INO) | payer MEDICAID ==
--- NOTE | 2018-04-07 19:08 | EDM.PDOC ---
ED HPI GENERAL MEDICAL PROBLEM - General Chief Complaint: Abdominal Pain Stated Complaint: LOWER ABDOMINAL PAIN,BLOOD CLOTS Time Seen by Provider: 04/07/18 19:06 Source of Information: Reports: Patient History Limitations: Reports: No Limitations - History of Present Illness INITIAL COMMENTS - FREE TEXT/NARRATIVE: onset low abd pain last night and been passing clots. got worse tonight and pt passed large clot in ER and felt better but is still oozing. denies light headedness. 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 Musculoskeletal History: Reports: None Neurological History: Reports: None Psychiatric History: Reports: None Endocrine/Metabolic History: Reports: None Hematologic History: Reports: None Immunologic History: Reports: None Oncologic (Cancer) History: Reports: None Dermatologic History: Reports: None - Infectious Disease History Infectious Disease History: Reports: Hepatitis C - Past Surgical History Musculoskeletal Surgical History: Reports: Other (See Below) Other Musculoskeletal Surgeries/Procedures:: left ankle surgery Social & Family History - Family History Family Medical History: Noncontributory HEENT: Reports: None Cardiac: Reports: None Respiratory: Reports: None GI: Reports: None - Tobacco Use Smoking Status *Q: Current Every Day Smoker Years of Tobacco use: 16 Packs/Tins Daily: 10 - Caffeine Use Caffeine Use: Reports: Coffee, Soda - Recreational Drug Use Recreational Drug Use: No - Living Situation & Occupation Living situation: Reports: with Family ED ROS GENERAL - Review of Systems Review Of Systems: ROS reveals no pertinent complaints other than HPI. ED EXAM, GI/ABD - Physical Exam Exam: See Below Exam Limited By: No Limitations General Appearance: Alert, WD/WN, Mild Distress, Other (discomfort, tearfull) Ears: Hearing Grossly Normal Throat/Mouth: Normal Voice, No Airway Compromise Head: Atraumatic Neck: Non-Tender, Full Range of Motion Respiratory/Chest: No Respiratory Distress Cardiovascular: Regular Rate, Rhythm (Female) Exam: Other (copious clots and active oozing) Neurological: Alert, Oriented, Normal Cognition, Normal Gait, No Motor/Sensory Deficits Psychiatric: Tearful Skin Exam: Warm, Dry, Normal Color Lymphatic: No Adenopathy Course - Vital Signs Last Recorded V/S: Last Vital Signs Temp 36.0 C 04/07/18 19:44 Pulse 66 04/07/18 19:44 Resp 19 04/07/18 19:44 BP 108/59 L 04/07/18 19:44 Pulse Ox 100 04/07/18 19:44 - Orders/Labs/Meds Orders: Active Orders 24 hr Category Date Time Status Lactated Ringers [Ringers, Lactated] 1,000 ml Med 04/07/18 19:30 Active IV ASDIRECTED Medication Orders Lactated Ringer's (Ringers, Lactated) 1,000 mls @ 999 mls/hr IV ASDIRECTED COREY Last Admin: 04/07/18 19:25 Dose: 999 mls/hr Labs: Laboratory Tests 04/07/18 04/07/18 Range/Units 18:50 18:50 WBC 11.9 H (5.0-10.0) 10^3/uL RBC 3.91 L (4.2-5.4) 10^6/uL Hgb 10.8 L (12.0-16.0) g/dL Hct 33.1 L (37.0-47.0) % MCV 84.7 D (80-100) fL MCH 27.6 (27.0-34.0) pg MCHC 32.6 L (33.0-35.0) g/dL Plt Count 109 L D (150-450) 10^3/uL Neut % (Auto) 52.0 (42.2-75.2) % Lymph % (Auto) 38.7 (20.5-50.1) % Bracken % (Auto) 7.5 (2-8) % Eos % (Auto) 1.6 (1.0-3.0) % Baso % (Auto) 0.2 (0.0-1.0) % Sodium 134 L (135-145) mmol/L Potassium 3.9 (3.6-5.0) mmol/L Chloride 103 (101-111) mmol/L Carbon Dioxide 22.0 (21.0-31.0) mmol/L Anion Gap 12.9 BUN 8 (7-18) mg/dL Creatinine 0.8 (0.6-1.3) mg/dL Est Cr Clr Drug Dosing 74.67 mL/min Estimated GFR (MDRD) > 60 BUN/Creatinine Ratio 10.00 Glucose 144 H (74-105) mg/dL Calcium 8.7 (8.4-10.2) mg/dl Total Bilirubin 0.5 (0.2-1.0) mg/dL AST 30 (10-42) IU/L ALT 34 (10-60) IU/L Alkaline Phosphatase 75 (42-121) IU/L Total Protein 7.0 (6.7-8.2) g/dl Albumin 3.5 (3.2-5.5) g/dl Globulin 3.5 Albumin/Globulin Ratio 1.00 HCG, Qual Positive Meds: Medications Generic Name Dose Route Start Last Admin Trade Name Freq PRN Reason Stop Dose Admin Lactated Ringer's 1,000 mls @ 999 mls/hr 04/07/18 19:30 04/07/18 19:25 Ringers, Lactated IV 999 mls/hr ASDIRECTED COREY Administration Discontinued Medications Generic Name Dose Route Start Last Admin Trade Name Freq PRN Reason Stop Dose Admin Morphine Sulfate 1 mg 04/07/18 19:46 04/07/18 19:53 Morphine IVPUSH 04/07/18 19:47 1 mg ONETIME ONE Administration Ondansetron HCl 4 mg 04/07/18 19:46 04/07/18 19:52 Zofran IV 04/07/18 19:47 4 mg ONETIME ONE Administration - Re-Assessments/Exams Free Text/Narrative Re-Assessment/Exam: 04/07/18 19:[address] Black who states will come over for further evaluation. Dr Flowers admitted the pt to observation Departure - Departure Time of Disposition: 20:24 Disposition: Refer to Observation Condition: Good Clinical Impression: Incomplete - Discharge Information Forms: ED Department Discharge - My Orders Last 24 Hours: My Active Orders 04/07/18 19:30 Lactated Ringers [Ringers, Lactated] 1,000 ml IV ASDIRECTED - Assessment/Plan Last 24 Hours: My Active Orders 01/25/19 19:30 Lactated Ringers [Ringers, Lactated] 1,000 ml IV ASDIRECTED
[2018-04-07] MEDS ORDERED: Lactated Ringers 1,000 ML IV SCH (19:30)
[2018-04-07 19:33] LABS: ANION GAP 12.9; CHLORIDE,CL 103 mmol/L (101-111); SODIUM,NA 134 mmol/L (135-145)
[2018-04-07] MEDS ORDERED: Morphine 2 MG/ML Syringe IVPUSH ONE (19:46)
[2018-04-07] MEDS ORDERED: Ondansetron 4 MG/2 ML SDV IV ONE (19:46)
--- NOTE | 2018-04-07 21:15 | HP ---
HISTORY OF PRESENT ILLNESS: Dr. Malone has discussed this patient with me and asked me to evaluate her in the emergency room with him. He did call me at approximately 7:30 p.m. brenda. The patient did come in to the ER complaining of very heavy vaginal bleeding and passing large clots and having lower abdominal cramping pain. This patient is a 37-year-old 6, para 4, AB1 patient who had an LMP on January 29. She would be at approximately 9 weeks 5 days gestation. She has had no care with this and no prior early ultrasound. She does admit to recent methamphetamine usage using it about 4 days ago she states. She also tells me that she did eat some fruit approximately 2 hours ago before coming to the emergency room and therefore has not been n.p.o. Dr. Malone did remove some large clots from the vaginal vault. The patient did continue to have some vaginal oozing and asked me if I would evaluate her. In the emergency room, her hemoglobin is 10.8. Her initial pulse rate was 74 and another pulse rate later when I have seen her is 79. Her blood pressure remained stable in the 106/61 range in the emergency room. Dr. Malone has given her 1 mg of morphine sulfate for her lower abdominal cramping. The patient tells me that she did actually bleed during the day today as well and did use approximately 8 different Pampers to collect the vaginal bleeding. PAST MEDICAL HISTORY: She denies any knowledge of heart, lung, or kidney disease. She does admit to having hepatitis C, she has had that for approximately 5 years and it is not clear if she has had any recent evaluation further of her hepatitis C. She denies being on any prescription medications at the present time, but does admit to abuse of methamphetamine. ALLERGIES: There are no known allergies. PAST SURGICAL HISTORY: She has had no previous surgical procedures. FAMILY HISTORY: Noncontributory. SOCIAL HISTORY: The patient is here with her mother brenda and the patient lives with her mother in [facility]. The patient denies the usage of alcohol and she does smoke one-half pack of cigarettes daily. PHYSICAL EXAMINATION: Vital Signs: Blood pressure 106/61, pulse 74, respirations are 16. The patient is afebrile. Recent hemoglobin is 10.8. HEENT: The sclerae are nonicteric. Lungs: Clear to auscultation. Heart: Regular rhythm without murmur. ABDOMEN: Soft and slightly tender in each lower quadrant and over the uterine area. There are no palpable masses. There is negative CVA tenderness. I have repeated the pelvic examination and there was one 50 cent piece size clot in the vaginal vault. The cervix appears to be closing down. Uterus is in the midposition and slightly tender. It is slightly enlarged, perhaps to 5 or 6 weeks' size at the present time. There are no adnexal masses or tenderness. IMPRESSION: Recent miscarriage, possibly complete, although we are going to admit her for observation tonight because of possible incomplete miscarriage. The patient also has history of hepatitis C. PLAN: We will obtain her blood type and Rh status. We will also obtain repeat CBC in the morning as well as obtain urine drug screen and obtain pelvic ultrasound in the morning. Her vaginal bleeding has lessened considerably and the patient is stable at the present time. As mentioned above, she did eat some fruit 2 hours before coming to the emergency room and it would be ill-advised and inappropriate to subject her to general anesthesia at this time. We will keep the patient n.p.o. in case she should require emergency D and C later tonight. Also I did associate professor of counseling her that if we did proceed with D and C, we thoroughly explained the goals and reasons for that operative procedure and we also discussed the slight possibility of complications and/or other adverse outcomes such as possible perforated uterus, possible infection, etc. She does understand and give consent to the procedure verbally, but we will have her sign the permit later before a D and C procedure would be done. The D and C procedure may not be necessary. I will also add IV Pitocin to her IV fluids and we will watch her closely to see if this may represent a possible spontaneous complete miscarriage. [facility] /[id number]
[2018-04-07] MEDS: Oxytocin/Normal Saline 30 UNIT/500 ML BAG IV SCH (21:40)
[2018-04-08] MEDS: Oxytocin/Normal Saline 30 UNIT/500 ML BAG IV SCH (00:19)
[2018-04-08] MEDS ORDERED: Lactated Ringers 1,000 ML IV SCH (02:45)
[2018-04-08 08:09] VITALS: BP 101/52
--- NOTE | 2018-04-08 08:37 | DISCH ---
HISTORY: Please see my dictated history and physical from last night as it pertains to my interaction with Dr. Malone in the emergency room and my consultation and my admission of the patient last night. Essentially, this patient is a 37-year-old, 6, para 4, now AB 2 patient, who had an LMP on 01/29/2018. She would have been possibly at approximately 9 weeks 5 days' gestation. She has had no care with this and no prior early ultrasound. She does admit to methamphetamine usage, last using at about 4 days ago she states, and I also see that her UDS is positive for opioids as well. She did have heavy vaginal bleeding when Dr. Malone initially saw her in the emergency room, and when I saw her a short time later, her bleeding was subsiding nicely. The patient has not apparently witnessed any actual tissue as such, but there were so many large blood clots that it would be easy for her to possibly miss the visualization of smaller pieces of tissue. She also told me that she did eat some fruit approximately 2 hours before coming to the emergency room; and therefore, because of the anesthesia risk with food in the stomach, we did not mandate emergency D and C on this patient. My plan was to admit her and continue her IV fluids; adding Pitocin; and to observe her closely during the night and to get a transvaginal pelvic ultrasound on the morning of 04/08/2018. I also later learned that there was no ultrasound availability for this weekend. The patient's blood type is Rh positive. Other past medical history reveals that she has had hepatitis C for approximately 5 years, and it is not clear if she has had any recent evaluation further of her hepatitis C. This needs to be followed up further after we see her in the clinic next week. She denies being on any prescription medications as such, but she did admit to the methamphetamine abuse and also the opioid abuse that shows up on her urine drug screen. The patient was admitted and observed very closely, and I did personally check on her approximately 2 times last night and early this morning when I was at the hospital for other patients. She has had a very good night. There was 1 episode where she did have about a 220 mL estimation of blood clot earlier in the evening, and then her bleeding also continued to subside after that. She has had IV Pitocin running during most of the night. As noted above, we do not have ultrasound availability this weekend; but I am happy to say that clinically, this appears to represent a spontaneous complete miscarriage, although I could not absolutely guarantee this to her. I have looked in on her twice during the night last night and on broadcast journalist rounds this morning at about 6:30 a.m. to 7:00 a.m. The patient continues to do better. There is no abdominal or pelvic cramping whatsoever. She does have a slight amount of permissible vaginal flow. We will permit discharge this morning with the following thorough followup instructions. Her discharge hemoglobin is 8.9 this morning as we might expect, and her admission hemoglobin in the ER last night was 10.8. The patient will go home with her reliable mother, and they both live in [place]. She was instructed to avoid sexual intercourse for 1 month. She was instructed to call either , Dr. Shaunna Mantilla, or any other family practice doctor on-call if she were to have excessive or persistent bleeding or any abdominal or pelvic cramping or pain or any fever or any question or problem, whatsoever. She assures me that she will keep us closely informed. I have also urged her to please call me this weekend since I am on-call the entire weekend, and she should report to me if she has questions or problems. She assures me that she will do that. DISCHARGE MEDICATIONS: Consist of: 1. Ibuprofen 600 mg 1 p.o. every 6 to 8 hours p.r.n. if any pain or cramping, #30. 2. Cytotec 400 mcg with instructions to take 400 mcg p.o. every 8 hours for 2 more days, 2-day supply. 3. Iron sulfate 325 mg 1 p.o. b.i.d. with food or meals, #40. DISCHARGE INSTRUCTIONS: We have also emphasized the importance of healthy, well- balanced, nutritional measures and adequate hydration and resting quietly at home avoiding any sexual activity or any drug abuse. FINAL DIAGNOSES: 1. Probable spontaneous complete miscarriage at 8 to 9 weeks' gestation. 2. Methamphetamine and opioid abuse. 3. The patient is Rhesus positive. 4. Iron deficiency blood loss anemia with discharge hemoglobin of 8.9. FOLLOWUP: The patient will see me on 04/18/2018 in the office and certainly call me or my colleagues before that time if questions or problems. [facility] /[id number]
== END 2018-04-08 08:55 | disposition home or self-care (01) ==
LOC: DL.ED 18:40 → DL.MS 20:30 → UNDOADMOB 20:30 → DL.MS 20:50
PROVIDERS: ADMIT Obstetrics & Gynecology; ATTEND Obstetrics & Gynecology
DX: O46.91 Antepartum hemorrhage, unspecified, first trimester (principal); Z3A.09 9 weeks gestation of pregnancy; O99.321 Drug use complicating pregnancy, first trimester; F11.10 Opioid abuse, uncomplicated; O99.011 Anemia complicating pregnancy, first trimester; O99.331 Smoking (tobacco) complicating pregnancy, first trimester; Z79.899 Other long term (current) drug therapy
CPT/HCPCS: 36415; 80053; 80305; 84703; 85025; 85027; 86900; 86901; 96361; 96365; 96366; 96375; 99285; G0378; J2270; J2405; J2590; J7120; 96374

== ENCOUNTER 2018-04-21 01:25 | Emergency (ER) | payer MEDICAID ==
[2018-04-21] MEDS ORDERED: Lidocaine 2% Viscous Solution 15 ML Cup PO ONE (01:26)
[2018-04-21 01:44] VITALS: BP 119/68
[2018-04-21] MEDS ORDERED: cefTRIAXone 1 GM, Lidocaine 1% 2.1 ML IM ONE ×2 (01:46)
[2018-04-21] MEDS ORDERED: Ibuprofen Susp 100 MG/5 ML 5 ML UD Cup PO ONE (01:51)
--- NOTE | 2018-04-21 02:35 | EDM.PDOC ---
ED HPI GENERAL MEDICAL PROBLEM - General Chief Complaint: ENT Problem Stated Complaint: MOUTH ISSUES [id number] Time Seen by Provider: 04/21/18 01:45 Source of Information: Reports: Patient History Limitations: Reports: No Limitations - History of Present Illness INITIAL COMMENTS - FREE TEXT/NARRATIVE: c/o sore throat and chills since yesterday tonight noted white patches on back of throat. Has not taken any tylenol or ibuprofen this eevening, Not eating, no vomiting. 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 [No Known Home Meds] 04/07/18 [History] Past Medical History - Past Health History Medical/Surgical History: Denies Medical/Surgical History HEENT History: Reports: Impaired Vision Cardiovascular History: Reports: None Respiratory History: Reports: None Gastrointestinal History: Reports: None Genitourinary History: Reports: None STAFF THERAPIST History: Reports: Spontaneous Musculoskeletal History: Reports: None Neurological History: Reports: None Psychiatric History: Reports: None Endocrine/Metabolic History: Reports: None Hematologic History: Reports: None Immunologic History: Reports: None Oncologic (Cancer) History: Reports: None Dermatologic History: Reports: None - Infectious Disease History Infectious Disease History: Reports: None - Past Surgical History Head Surgeries/Procedures: Reports: None Musculoskeletal Surgical History: Reports: Other (See Below) Other Musculoskeletal Surgeries/Procedures:: left ankle surgery Social & Family History - Family History Family Medical History: Noncontributory HEENT: Reports: None Cardiac: Reports: None Respiratory: Reports: None GI: Reports: None - Tobacco Use Smoking Status *Q: Current Every Day Smoker Years of Tobacco use: 10 Packs/Tins Daily: 6 - Caffeine Use Caffeine Use: Reports: Coffee, Soda - Recreational Drug Use Recreational Drug Use: No - Living Situation & Occupation Living situation: Reports: with Family ED ROS ENT - Review of Systems Review Of Systems: ROS reveals no pertinent complaints other than HPI. ED EXAM, ENT - Physical Exam Exam: See Below Exam Limited By: No Limitations General Appearance: Alert, Mild Distress Eye Exam: Bilateral Eye: EOMI Ears: Normal External Exam, Normal TMs Nose: Normal Inspection Mouth/Throat: Tonsillar Erythema, Tonsillar Exudates, Tonsillar Swelling. No: Uvular Deviation Head: Atraumatic, Normocephalic Neck: Normal Inspection, Lymphadenopathy (L), Lymphadenopathy (R) Respiratory/Chest: No Respiratory Distress, Lungs Clear, Normal Breath Sounds Cardiovascular: Normal Peripheral Pulses, Regular Rate, Rhythm, Tachycardia GI/Abdominal: Normal Bowel Sounds Back: Full Range of Motion Extremities: Normal Range of Motion Neurological: Alert, Oriented, Normal Cognition Psychiatric: Normal Affect Skin: Warm, Dry, Intact, Normal Color. No: Rash Course - Vital Signs Last Recorded V/S: Last Vital Signs Temp 96.6 F 04/21/18 01:30 Pulse 110 H 04/21/18 01:30 Resp 18 04/21/18 01:30 BP 119/68 04/21/18 01:30 Pulse Ox 99 04/21/18 01:30 - Orders/Labs/Meds Orders: Active Orders 24 hr Category Date Time Status cefTRIAXone 1 GM,Lidocaine 1% 2.1 ML Med 04/21/18 01:46 Ordered cefTRIAXone [Rocephin] 1 gm Lidocaine 1% [Xylocaine-MPF 1%] 2.1 ml IM ONETIME Medication Orders Ceftriaxone Sodium 1 gm/ (Lidocaine HCl 2.1 ml) 0 gm IM ONETIME ONE Stop: 04/21/18 01:47 Meds: Medications Generic Name Dose Route Start Last Admin Trade Name Daniella PRN Reason Stop Dose Admin Ceftriaxone Sodium 1 gm/ 0 gm 04/21/18 01:46 Lidocaine HCl 2.1 ml IM 04/21/18 01:47 ONETIME ONE Departure - Departure Time of Disposition: 01:48 Disposition: Home, Self-Care 01 Condition: Good Clinical Impression: Strep pharyngitis - Discharge Information *PRESCRIPTION DRUG MONITORING PROGRAM REVIEWED*: No *COPY OF PRESCRIPTION DRUG MONITORING REPORT IN PATIENT ILSA: No Instructions: Strep Throat, [id number] Additional Instructions: tylenol 650mg alternating with ibuprofen 600mg every 4 hours as needed for fever /discomfort increase fluid intake amoxicillin 500mg one 3 times daily for one week follow up as needed - My Orders Last 24 Hours: My Active Orders 04/21/18 01:46 cefTRIAXone 1 GM,Lidocaine 1% 2.1 ML cefTRIAXone [Rocephin] 1 gm Lidocaine 1% [ Xylocaine-MPF 1%] 2.1 ml IM ONETIME - Assessment/Plan Last 24 Hours: My Active Orders 04/21/18 01:46 cefTRIAXone 1 GM,Lidocaine 1% 2.1 ML cefTRIAXone [Rocephin] 1 gm Lidocaine 1% [ Xylocaine-MPF 1%] 2.1 ml IM ONETIME
[2018-04-21] MEDS ORDERED: Lidocaine 2% Viscous Solution 15 ML Cup ONE (02:44)
== END 2018-04-21 02:49 | disposition home or self-care (01) ==
LOC: DL.ED 01:25
DX: J02.0 Streptococcal pharyngitis (principal); F17.210 Nicotine dependence, cigarettes, uncomplicated
CPT/HCPCS: 87430; 96372; 99283; A9270; J0696

== ENCOUNTER 2019-01-09 18:16 | Emergency (ER) | payer MEDICAID ==
[2019-01-09 18:29] VITALS: BP 125/73; PULSE 97
--- NOTE | 2019-01-09 18:32 | EDM.PDOC ---
ED HPI GENERAL MEDICAL PROBLEM - General Chief Complaint: Genitourinary Problem Stated Complaint: BLADDER INFECTION PER PT. Time Seen by Provider: 01/09/19 18:20 Source of Information: Reports: Patient History Limitations: Reports: No Limitations - History of Present Illness INITIAL COMMENTS - FREE TEXT/NARRATIVE: This 38 yo female patient reports to the ED with dysuria and left flank pain. The patient reports she was seen at the [facility] 2 days ago and was started on "some little brown pills". The patient reports the "little brown pills" are not working and she is getting worse. Onset Date: 01/08/19 Duration: Constant, Getting Worse Quality: Reports: Ache, Burning Severity: Moderate Improves with: Reports: None Worsens with: Reports: None Context: Reports: Other Left Flank Pain Score (Numeric/FACES): 3 - Related Data Allergies Allergy/AdvReac Type Severity Reaction Status Date / Time No Known Allergies Allergy Verified 09/17/18 13:36 Past Medical History - Past Health History Medical/Surgical History: Denies Medical/Surgical History HEENT History: Reports: Impaired Vision Cardiovascular History: Reports: None Respiratory History: Reports: None Gastrointestinal History: Reports: None Genitourinary History: Reports: None 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 Musculoskeletal History: Reports: None Neurological History: Reports: None Psychiatric History: Reports: None Endocrine/Metabolic History: Reports: None Hematologic History: Reports: None Immunologic History: Reports: None Oncologic (Cancer) History: Reports: None Dermatologic History: Reports: None - Infectious Disease History Infectious Disease History: Reports: None - Past Surgical History Head Surgeries/Procedures: Reports: None Musculoskeletal Surgical History: Reports: Other (See Below) Other Musculoskeletal Surgeries/Procedures:: left ankle surgery Social & Family History - Family History Family Medical History: Noncontributory HEENT: Reports: None Cardiac: Reports: None Respiratory: Reports: None GI: Reports: None - Caffeine Use Caffeine Use: Reports: Coffee, Soda - Living Situation & Occupation Living situation: Reports: with Family ED ROS GENERAL - Review of Systems Review Of Systems: ROS reveals no pertinent complaints other than HPI. ED EXAM, RENAL/ - Physical Exam Exam: See Below Exam Limited By: No Limitations General Appearance: Alert, WD/WN, Moderate Distress Eye Exam: Bilateral Eye: EOMI, Normal Inspection, PERRL Ears: Normal External Exam, Normal Canal, Hearing Grossly Normal, Normal TMs Nose: Normal Inspection, Normal Mucosa, No Blood Throat/Mouth: Normal Inspection, Normal Lips, Normal Teeth, Normal Gums, Normal Oropharynx, Normal Voice, No Airway Compromise Head: Atraumatic, Normocephalic Neck: Normal Inspection, Supple, Non-Tender, Full Range of Motion Respiratory/Chest: No Respiratory Distress, Lungs Clear, Normal Breath Sounds, No Accessory Muscle Use, Chest Non-Tender Cardiovascular: Normal Peripheral Pulses, Regular Rate, Rhythm, No Edema, No Gallop, No JVD, No Murmur, No Rub GI/Abdominal: Normal Bowel Sounds, No Organomegaly, No Distention, No Abnormal Bruit, No Mass, Pelvis Stable, Tender (lower abdomen) (Female) Exam: Deferred Rectal (Female) Exam: Deferred Back Exam: CVA Tenderness (L) Extremities: Normal Inspection, Normal Range of Motion, Non-Tender, Normal Capillary Refill, No Pedal Edema Neurological: Alert, Oriented, CN II-XII Intact, Normal Cognition, Normal Gait, Normal Reflexes, No Motor/Sensory Deficits Psychiatric: Normal Affect, Normal Mood Skin Exam: Warm, Dry, Intact, Normal Color, No Rash Lymphatic: No Adenopathy Course - Vital Signs Last Recorded V/S: Last Vital Signs Temp 36.5 C 01/09/19 18:25 Pulse 97 01/09/19 18:25 Resp 18 01/09/19 18:25 BP 125/73 01/09/19 18:25 Pulse Ox - Orders/Labs/Meds Orders: Active Orders 24 hr Category Date Time Status COMPREHENSIVE METABOLIC PN,CMP [CHEM] Urgent Lab 01/09/19 18:25 Ordered CULTURE URINE [RM] Urgent Lab 01/09/19 18:43 Received UA W/MICROSCOPIC [URIN] Urgent Lab 01/09/19 18:43 Results Ciprofloxacin [Ciprofloxacin HCl] Med 01/09/19 18:47 Once 500 mg PO ONETIME ONE Phenazopyridine [Urinary Pain Relief] Med 01/09/19 18:47 Once 190 mg PO ONETIME ONE Labs: Laboratory Tests 01/09/19 01/09/19 Range/Units 18:33 18:43 WBC 11.6 H (5.0-10.0) 10^3/uL RBC 4.50 (4.2-5.4) 10^6/uL Hgb 9.4 L (12.0-16.0) g/dL Hct 30.7 L (37.0-47.0) % MCV 68.2 L D (80-100) fL MCH 20.9 L (27.0-34.0) pg MCHC 30.6 L (33.0-35.0) g/dL Plt Count 410 D (150-450) 10^3/uL Neut % (Auto) 72.2 (42.2-75.2) % Lymph % (Auto) 19.4 L (20.5-50.1) % [place] % (Auto) 6.6 (2-8) % Eos % (Auto) 1.5 (1.0-3.0) % Baso % (Auto) 0.3 (0.0-1.0) % Urine Color Yellow (YELLOW) Urine Appearance Cloudy (CLEAR) Urine pH 6.0 (5.0-9.0) Ur Specific [place] 1.025 (1.005-1.030) Urine Protein 30 H (NEGATIVE) Urine Glucose (UA) Negative (NEGATIVE) Urine Ketones Negative (NEGATIVE) Urine Occult Blood Moderate H (NEGATIVE) Urine Nitrite Negative (NEGATIVE) Urine Bilirubin Negative (NEGATIVE) Urine Urobilinogen 0.2 (0.2-1.0) mg/dL Ur Leukocyte Esterase Large H (NEGATIVE) Departure - Departure Time of Disposition: 18:47 Disposition: Home, Self-Care 01 Condition: Fair Clinical Impression: Pyelonephritis - Discharge Information *PRESCRIPTION DRUG MONITORING PROGRAM REVIEWED*: Not Applicable *COPY OF PRESCRIPTION DRUG MONITORING REPORT IN PATIENT ILSA: Not Applicable Instructions: Urinary Tract Infection, Adult, Lvon-hu-Herk Forms: ED Department Discharge Care Plan Goals: The patient was advised of the examination and lab results during the visit. The patient was given an oral dose of Cipro (500 mg) and Pyridium (200 mg) while in the ED. The patient was discharged with a script for Cipro (500 mg) # 14 to take 1 by mouth 2 times per day and Pyridium (200mg) #6 to take 1 by mouth 3 times per day. If the patient has any additional symptoms or concerns, the patient should follow-up with her primary care facility or return to the emergency department. - My Orders Last 24 Hours: My Active Orders 01/09/19 18:25 COMPREHENSIVE METABOLIC PN,CMP [CHEM] Urgent 01/09/19 18:43 CULTURE URINE [RM] Urgent UA W/MICROSCOPIC [URIN] Urgent 01/09/19 18:47 Ciprofloxacin [Ciprofloxacin HCl] 500 mg PO ONETIME ONE Phenazopyridine [Urinary Pain Relief] 190 mg PO ONETIME ONE - Assessment/Plan Last 24 Hours: My Active Orders 01/09/19 18:25 COMPREHENSIVE METABOLIC PN,CMP [CHEM] Urgent 01/09/19 18:43 CULTURE URINE [RM] Urgent UA W/MICROSCOPIC [URIN] Urgent 01/09/19 18:47 Ciprofloxacin [Ciprofloxacin HCl] 500 mg PO ONETIME ONE Phenazopyridine [Urinary Pain Relief] 190 mg PO ONETIME ONE
[2019-01-09] MEDS ORDERED: Phenazopyridine 95 MG Tab PO ONE (18:47)
[2019-01-09] MEDS ORDERED: Ciprofloxacin 500 MG Tab PO ONE (18:47)
[2019-01-09] MEDS ORDERED: Phenazopyridine 95 MG Tab ONE (18:56)
[2019-01-09 18:58] LABS: CHLORIDE,CL 107 mmol/L (101-111); SODIUM,NA 137 mmol/L (135-145)
== END 2019-01-09 18:56 | disposition home or self-care (01) ==
LOC: DL.ED 18:16
DX: N12 Tubulo-interstitial nephritis, not specified as acute or chronic (principal)
CPT/HCPCS: 36415; 80053; 81001; 85025; 87086; 99283; A9270; 87186

== ENCOUNTER 2019-04-01 14:55 | Emergency (ER) | payer MEDICAID ==
[2019-04-01 16:20] VITALS: BP 120/70; PULSE 90
[2019-04-01] MEDS ORDERED: Azithromycin 250 MG Tab PO ONE (17:23)
[2019-04-01] MEDS ORDERED: cefTRIAXone 250 MG, Lidocaine 1% 0.9 ML IM ONE ×2 (17:24)
[2019-04-01] MEDS ORDERED: Lidocaine 1% 30 ML SDV INJECT ONE (17:35)
[2019-04-01] MEDS ORDERED: Sulfamethoxazole/Trimethoprim 800-160 MG Tab PO ONE (18:00)
--- NOTE | 2019-04-01 18:42 | EDM.PDOC ---
Scribed by Adrienne Rodriguez 04/01/19 [id number] for Radha Peres NP ED HPI GENERAL MEDICAL PROBLEM - General Chief Complaint: Eye Problems Stated Complaint: PINK EYE Time Seen by Provider: 04/01/19 16:51 Source of Information: Reports: Patient, RN, RN Notes Reviewed History Limitations: Reports: No Limitations - History of Present Illness INITIAL COMMENTS - FREE TEXT/NARRATIVE: Patient presents to ER with complaint of left eyelid pain and drainage. Drainage is purulent white. Patient also complains of a sore and green vaginal discharge. States she has not been sexually active since her 5 year old was born except 1 month ago. States she is concerned about Chlamydia and gonorrhea. States she has a history of Hepatitis C. States she knows her partner is not HIV positive so not concerned about that. Denies fever or chills or any other complaint. States she is not concerned for as she just finished her menstrual cycle. Onset: Gradual Duration: Getting Worse Location: Reports: Other (left eye and vaginal area) Quality: Reports: Ache Severity: Mild Improves with: Reports: None Worsens with: Reports: None Associated Symptoms: Reports: No Other Symptoms Perineal Area Pain Score (Numeric/FACES): 6 - Related Data Allergies Allergy/AdvReac Type Severity Reaction Status Date / Time No Known Allergies Allergy Verified 04/01/19 16:20 Home Meds: Home Meds . 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 Musculoskeletal History: Reports: None Neurological History: Reports: None Psychiatric History: Reports: None Endocrine/Metabolic History: Reports: None Hematologic History: Reports: None Immunologic History: Reports: None Oncologic (Cancer) History: Reports: None Dermatologic History: Reports: None - Infectious Disease History Infectious Disease History: Reports: None - Past Surgical History Head Surgeries/Procedures: Reports: None Musculoskeletal Surgical History: Reports: Other (See Below) Other Musculoskeletal Surgeries/Procedures:: left ankle surgery Social & Family History - Family History Family Medical History: Noncontributory HEENT: Reports: None Cardiac: Reports: None Respiratory: Reports: None GI: Reports: None - Caffeine Use Caffeine Use: Reports: Coffee, Soda - Living Situation & Occupation Living situation: Reports: with Family ED ROS GENERAL - Review of Systems Review Of Systems: Comprehensive ROS is negative, except as noted in HPI. ED EXAM GENERAL W FULL EYE - Physical Exam Exam: See Below Exam Limited By: No Limitations General Appearance: Alert, WD/WN, No Apparent Distress Eye Exam: Left Eye: Other (left upper lid hordeolum), Bilateral Eye: EOMI, PERRL With Correction: Yes Eyelids: Right: Normal Appearance, Left: Lid Everted for Exam, Stye Conjunctiva & Sclera: Bilateral: Normal Appearance Cornea Exam: Bilateral: Normal Appearance Extraocular Movements: Bilateral: Intact Pupils: Normal Accommodation Pupillary Size: Bilateral: 3 mm Pupillary Reaction: Bilateral: Brisk Ears: Normal External Exam, Normal Canal, Hearing Grossly Normal, Normal TMs Nose: Normal Inspection, Normal Mucosa, No Blood Throat/Mouth: Normal Inspection, Normal Lips, Normal Teeth, Normal Gums, Normal Oropharynx, Normal Voice, No Airway Compromise Head: Atraumatic, Normocephalic Neck: Normal Inspection, Supple, Non-Tender, Full Range of Motion Respiratory/Chest: No Respiratory Distress, Lungs Clear, Normal Breath Sounds, No Accessory Muscle Use, Chest Non-Tender Cardiovascular: Normal Peripheral Pulses, Regular Rate, Rhythm, No Edema, No Gallop, No JVD, No Murmur, No Rub GI/Abdominal: Normal Bowel Sounds, Soft, Non-Tender, No Organomegaly, No Distention, No Abnormal Bruit, No Mass (Female) Exam: Normal Speculum Exam, Vaginal Discharge (Green/white), Vaginal Lesions (labial skin abscess, right labia majora, skin abscess to the right buttock) Rectal (Males) Exam: Normal Exam Back Exam: Normal Inspection, Full Range of Motion, NT Extremities: Normal Inspection, Normal Range of Motion, Non-Tender, Normal Capillary Refill, No Pedal Edema Neurological: Alert, Oriented, CN II-XII Intact, Normal Cognition, Normal Gait, Normal Reflexes, No Motor/Sensory Deficits Psychiatric: Normal Affect, Normal Mood Lymphatic: No Adenopathy ED EYE w/ Add Procedure - Eye Procedure Alcaine Drops Administered: No Progress: Oral antibiotics prescribed - Additional/Other Procedure(s) Other (Free Text) Procedure(s) [Text1]: Abscess to the right labia majora lanced. Lidocaine 1% injected, 6cc Moderate amount of purulent drainage from the abscess Patient tolerated well 18g needle used to connie the area Probed for inoculations Course - Vital Signs Last Recorded V/S: Last Vital Signs Temp 96.6 F 04/01/19 16:17 Pulse 90 04/01/19 16:17 Resp 16 04/01/19 16:17 BP 120/70 04/01/19 16:17 Pulse Ox 100 04/01/19 16:17 - Orders/Labs/Meds Labs: Laboratory Tests 04/01/19 04/01/19 04/01/19 Range/Units 17:27 17:27 17:27 Urine Color Dark yellow (YELLOW) Urine Appearance Slightly cloudy (CLEAR) Urine pH 6.0 (5.0-9.0) Ur Specific [place] >= 1.030 (1.005-1.030) Urine Protein Negative (NEGATIVE) Urine Glucose (UA) Negative (NEGATIVE) Urine Ketones Trace H (NEGATIVE) Urine Occult Blood Negative (NEGATIVE) Urine Nitrite Negative (NEGATIVE) Urine Bilirubin Small H (NEGATIVE) Urine Urobilinogen 4.0 H (0.2-1.0) mg/dL Ur Leukocyte Esterase Small H (NEGATIVE) Urine RBC Not seen /HPF Urine WBC 5-10 H (0-5/HPF) /HPF Ur Epithelial Cells Moderate H (NOT SEEN) /HPF Calcium Oxalate Crystal Many H (NOT SEEN) /HPF Urine Bacteria Moderate H (0-FEW/HPF) /HPF Urine HCG, Qual Negative Urine Opiates Screen Negative (NEGATIVE) Ur Oxycodone Screen Negative (NEGATIVE) Urine Methadone Screen Negative (NEGATIVE) Ur Barbiturates Screen Negative (NEGATIVE) U Tricyclic Antidepress Negative (NEGATIVE) Ur Phencyclidine Scrn Negative (NEGATIVE) Ur Amphetamine Screen Positive H (NEGATIVE) U Methamphetamines Scrn Positive H (NEGATIVE) Urine MDMA Screen Positive H (NEGATIVE) U Benzodiazepines Scrn Negative (NEGATIVE) Urine Cocaine Screen Negative (NEGATIVE) U Marijuana (THC) Screen Negative (NEGATIVE) Chlamydia/GC Source C.trachomatis RNA (TMA) (Negative) N.gonorrhoeae RNA (TMA) (Negative) 04/01/19 Range/Units 17:27 Urine Color (YELLOW) Urine Appearance (CLEAR) Urine pH (5.0-9.0) Ur Specific [place] (1.005-1.030) Urine Protein (NEGATIVE) Urine Glucose (UA) (NEGATIVE) Urine Ketones (NEGATIVE) Urine Occult Blood (NEGATIVE) Urine Nitrite (NEGATIVE) Urine Bilirubin (NEGATIVE) Urine Urobilinogen (0.2-1.0) mg/dL Ur Leukocyte Esterase (NEGATIVE) Urine RBC /HPF Urine WBC (0-5/HPF) /HPF Ur Epithelial Cells (NOT SEEN) /HPF Calcium Oxalate Crystal (NOT SEEN) /HPF Urine Bacteria (0-FEW/HPF) /HPF Urine HCG, Qual Urine Opiates Screen (NEGATIVE) Ur Oxycodone Screen (NEGATIVE) Urine Methadone Screen (NEGATIVE) Ur Barbiturates Screen (NEGATIVE) U Tricyclic Antidepress (NEGATIVE) Ur Phencyclidine Scrn (NEGATIVE) Ur Amphetamine Screen (NEGATIVE) U Methamphetamines Scrn (NEGATIVE) Urine MDMA Screen (NEGATIVE) U Benzodiazepines Scrn (NEGATIVE) Urine Cocaine Screen (NEGATIVE) U Marijuana (THC) Screen (NEGATIVE) Chlamydia/GC Source Urine C.trachomatis RNA (TMA) Negative (Negative) N.gonorrhoeae RNA (TMA) Negative (Negative) Meds: Medications Discontinued Medications Generic Name Dose Route Start Last Admin Trade Name Freq PRN Reason Stop Dose Admin Azithromycin 1,000 mg 04/01/19 17:23 04/01/19 17:46 Zithromax PO 04/01/19 17:24 1,000 mg ONETIME ONE Administration Ceftriaxone Sodium 250 mg/ 0 mg 04/01/19 17:24 04/01/19 17:44 Lidocaine HCl 0.9 ml IM 04/01/19 17:25 250 inj ONETIME ONE Administration Lidocaine HCl 30 ml 04/01/19 17:35 04/01/19 17:47 Xylocaine-Mpf 1% INJECT 04/01/19 17:36 30 ml ONETIME ONE Administration Trimethoprim/Sulfamethoxazole 1 tab 04/01/19 18:00 04/01/19 18:05 Septra Ds PO 04/01/19 18:01 1 tab ONETIME ONE Administration Departure - Departure Time of Disposition: 18:38 Disposition: Home, Self-Care 01 Condition: Fair Clinical Impression: Hordeolum externum left upper eyelid, Abscess, Prophylactic antibiotic - Discharge Information *PRESCRIPTION DRUG MONITORING PROGRAM REVIEWED*: No *COPY OF PRESCRIPTION DRUG MONITORING REPORT IN PATIENT ILSA: No Instructions: Skin Abscess, [id number], Stye, Incision and Drainage, Care After, Preventing Sexually Transmitted Infections, Adult Referrals: PCP,Unobtain [Ordering Only Provider] - Forms: ED Department Discharge Additional Instructions: RX: Bactrim Wash perineum frequently You will get a call from the hospital if any tests positive Follow up with your primary care provider as necessary Sepsis Event Note - Focused Exam Date Exam was Performed: 04/03/19 Time Exam was Performed: 19:02 I have read and agree with the documentation that has been completed regarding this visit. By signing this record, I attest that the documentation was completed in my physical presence and is an accurate record of the encounter.
== END 2019-04-01 18:56 | disposition home or self-care (01) ==
LOC: DL.ED 14:55
DX: H00.014 Hordeolum externum left upper eyelid (principal); N76.4 Abscess of vulva; L02.31 Cutaneous abscess of buttock
CPT/HCPCS: 56405; 80305; 81001; 81025; 87070; 87077; 87086; 87088; 87186; 87210; 87491; 87591; 96372; 99283; A9270; J0696; J2001

== ENCOUNTER 2019-07-21 13:36 | Emergency (ER) | payer MEDICAID ==
[2019-07-21] MEDS ORDERED: Sodium Chloride 0.9% 10 ML Syringe FLUSH PRN (13:52)
[2019-07-21 13:53] VITALS: BP 126/78; PULSE 98
[2019-07-21] MEDS ORDERED: Lidocaine 1% 30 ML SDV INJECT ONE (13:53)
[2019-07-21] MEDS ORDERED: ceFAZolin 2 GM in Premix Bag 1 BAG IV ONE (13:53)
[2019-07-21] MEDS ORDERED: Sulfamethoxazole/Trimethoprim 800-160 MG Tab PO ONE (13:54)
[2019-07-21] MEDS ORDERED: Ondansetron 4 MG/2 ML SDV IV ONE (13:54)
[2019-07-21] MEDS ORDERED: HYDROmorphone 1 MG/ML Syringe IVPUSH ONE (13:55)
--- NOTE | 2019-07-21 14:48 | EDM.PDOC ---
Scribed by Adrienne Rodriguez 07/21/19 [id number] for Lázaro Hanna MD ED HPI GENERAL MEDICAL PROBLEM - General Chief Complaint: Lower Extremity Injury/Pain Stated Complaint: RT LEG SWOLLEN/PAIN Time Seen by Provider: 07/21/19 13:46 Source of Information: Reports: Patient, RN, RN Notes Reviewed History Limitations: Reports: No Limitations - History of Present Illness INITIAL COMMENTS - FREE TEXT/NARRATIVE: Patient presents to ER by POV with complaint that 3 days ago she had an infected pimple or hair on the right proximal medial thigh. She squeezed it and had return of a small amount of pus. Over the next 2 days, she had expanding erythema, increased warmth, tenderness and inflammation of an abscess. Denies fever or chills. Denies Hx of MRSA. Onset Date: 07/18/19 Location: Reports: Lower Extremity, Right Quality: Reports: Ache Severity: Moderate Improves with: Reports: None Worsens with: Reports: None Associated Symptoms: Reports: No Other Symptoms Left Upper Leg Pain Score (Numeric/FACES): 8 - Related Data Allergies Allergy/AdvReac Type Severity Reaction Status Date / Time No Known Allergies Allergy Verified 04/01/19 16:20 Home Meds: Home Meds . 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 Musculoskeletal History: Reports: None Neurological History: Reports: None Psychiatric History: Reports: None Endocrine/Metabolic History: Reports: None Hematologic History: Reports: None Immunologic History: Reports: None Oncologic (Cancer) History: Reports: None Dermatologic History: Reports: None - Infectious Disease History Infectious Disease History: Reports: None - Past Surgical History Head Surgeries/Procedures: Reports: None Musculoskeletal Surgical History: Reports: Other (See Below) Other Musculoskeletal Surgeries/Procedures:: left ankle surgery Social & Family History - Family History Family Medical History: Noncontributory HEENT: Reports: None Cardiac: Reports: None Respiratory: Reports: None GI: Reports: None - Caffeine Use Caffeine Use: Reports: Coffee, Soda - Living Situation & Occupation Living situation: Reports: with Family Review of Systems - Review of Systems Review Of Systems: Comprehensive ROS is negative, except as noted in HPI. ED EXAM, GENERAL - Physical Exam Exam: See Below Exam Limited By: No Limitations General Appearance: Alert, WD/WN, No Apparent Distress Eye Exam: Bilateral Eye: Normal Inspection Throat/Mouth: Normal Voice, No Airway Compromise Head: Atraumatic, Normocephalic Neck: Normal Inspection Respiratory/Chest: No Respiratory Distress, Lungs Clear, No Accessory Muscle Use Cardiovascular: Normal Peripheral Pulses, Regular Rate, Rhythm Extremities: Normal Range of Motion, No Pedal Edema, Normal Capillary Refill. No: Joint Swelling Neurological: Alert, Oriented, No Motor/Sensory Deficits Psychiatric: Normal Mood Skin Exam: Other (14cm temi. of erythema at Rt proximal medial thigh with a 2.5cm temi. central fluctuant abscess with increased warmth and tenderness.) ED TRAUMA EXTREMITY PROCEDURES - I&D Site: Rt thigh Skin Prep: Chlorhexidine (Hibiciens), Saline, Sterile Drape Local Anesthesia: Lidocaine: 1% Plain Local Anesthetic Volume: 5cc Area Incised With: 11 Blade Drainage: Purulent, Bloody, Small Amount Probed to Break Up Loculations: Yes Packed With: 1/4 in. Iodoform Sterile Dressinx4(s) Complications: No Course - Vital Signs Last Recorded V/S: Last Vital Signs Temp 97.6 F 07/21/19 13:49 Pulse 98 07/21/19 13:49 Resp 16 07/21/19 13:49 BP 126/78 07/21/19 13:49 Pulse Ox 100 07/21/19 13:49 - Orders/Labs/Meds Orders: Active Orders 24 hr Category Date Time Status Peripheral IV Care [RC] . DIRECTED Care 07/21/19 13:52 Active CULTURE WOUND [RM] Stat Lab 07/21/19 13:55 Ordered Sodium Chloride 0.9% [Saline Flush] Med 07/21/19 13:52 Active 10 ml FLUSH ASDIRECTED PRN Peripheral IV Insertion Adult [OM.PC] Stat Oth 07/21/19 13:51 Ordered Medication Orders Sodium Chloride (Saline Flush) 10 ml FLUSH ASDIRECTED PRN PRN Reason: Keep Vein Open Last Admin: 07/21/19 14:07 Dose: 10 ml Labs: Laboratory Tests 07/21/19 07/21/19 Range/Units 13:53 13:53 WBC 13.1 H (5.0-10.0) 10^3/uL RBC 4.38 (4.2-5.4) 10^6/uL Hgb 8.9 L (12.0-16.0) g/dL Hct 28.5 L (37.0-47.0) % MCV 65.1 L D (80-100) fL MCH 20.3 L (27.0-34.0) pg MCHC 31.2 L (33.0-35.0) g/dL Plt Count 392 (150-450) 10^3/uL Neut % (Auto) 72.9 (42.2-75.2) % Lymph % (Auto) 19.1 L (20.5-50.1) % [place] % (Auto) 7.0 (2-8) % Eos % (Auto) 0.8 L (1.0-3.0) % Baso % (Auto) 0.2 (0.0-1.0) % C-Reactive Protein 1.3 H (0.0-0.9) mg/dL Meds: Medications Generic Name Dose Route Start Last Admin Trade Name Freq PRN Reason Stop Dose Admin Sodium Chloride 10 ml 07/21/19 13:52 07/21/19 14:07 Saline Flush FLUSH 10 ml ASDIRECTED PRN Administration Keep Vein Open Discontinued Medications Generic Name Dose Route Start Last Admin Trade Name Freq PRN Reason Stop Dose Admin Hydromorphone HCl 1 mg 07/21/19 13:55 07/21/19 14:03 Dilaudid IVPUSH 07/21/19 13:56 1 mg ONETIME ONE Administration Cefazolin Sodium/Dextrose 2 gm 50 mls @ 100 mls/hr 07/21/19 13:53 07/21/19 14 :07 / Premix IV 07/21/19 14:22 100 mls/hr ONETIME ONE Administration Lidocaine HCl 30 ml 07/21/19 13:53 07/21/19 14:08 Xylocaine-Mpf 1% INJECT 07/21/19 13:54 10 ml ONETIME ONE Administration Ondansetron HCl 4 mg 07/21/19 13:54 07/21/19 14:05 Zofran IV 07/21/19 13:55 4 mg ONETIME ONE Administration Trimethoprim/Sulfamethoxazole 1 tab 07/21/19 13:54 07/21/19 14:08 Septra Ds PO 07/21/19 13:55 1 tab ONETIME ONE Administration Departure - Departure Time of Disposition: 14:37 Disposition: Home, Self-Care 01 Condition: Good Clinical Impression: Abscess of right thigh, Cellulitis of right thigh - Discharge Information *PRESCRIPTION DRUG MONITORING PROGRAM REVIEWED*: Not Applicable *COPY OF PRESCRIPTION DRUG MONITORING REPORT IN PATIENT ILSA: Not Applicable Instructions: Cellulitis, Adult, Skin Abscess, [id number] Forms: ED Department Discharge Additional Instructions: Rx: Cephalexin 500mg Rx: Bactrim DS Rx: Bactroban Ointment 2% Rx: Tramadol 50mg Pull packing out after 24 hours, or have clinic pull it. Follow up in clinic in 2 to 3 days for recheck. Sepsis Event Note - Focused Exam Vital Signs: Vital Signs Temp Pulse Resp BP Pulse Ox 07/21/19 13:49 97.6 F 98 16 126/78 100 Date Exam was Performed: 07/21/19 Time Exam was Performed: 14:47 - My Orders Last 24 Hours: My Active Orders 07/21/19 13:51 Peripheral IV Insertion Adult [OM.PC] Stat 07/21/19 13:52 Peripheral IV Care [RC] . DIRECTED Sodium Chloride 0.9% [Saline Flush] 10 ml FLUSH ASDIRECTED PRN 07/21/19 13:55 CULTURE WOUND [RM] Stat - Assessment/Plan Last 24 Hours: My Active Orders 07/21/19 13:51 Peripheral IV Insertion Adult [OM.PC] Stat 07/21/19 13:52 Peripheral IV Care [RC] . DIRECTED Sodium Chloride 0.9% [Saline Flush] 10 ml FLUSH ASDIRECTED PRN 07/21/19 13:55 CULTURE WOUND [RM] Stat I have read and agree with the documentation that has been completed regarding this visit. By signing this record, I attest that the documentation was completed in my physical presence and is an accurate record of the encounter.
== END 2019-07-21 14:52 | disposition home or self-care (01) ==
LOC: DL.ED 13:36
DX: L02.415 Cutaneous abscess of right lower limb (principal); L03.115 Cellulitis of right lower limb
CPT/HCPCS: 10061; 36415; 85025; 86140; 87070; 87077; 87186; 96365; 96375; 99283; A9270; J0690; J1170; J2001; J2405; 10060

== ENCOUNTER 2019-09-04 17:59 | Emergency (ER) | payer MEDICAID ==
[2019-09-04 18:10] VITALS: BP 126/76; PULSE 100
--- NOTE | 2019-09-04 18:18 | EDM.PDOC ---
ED HPI GENERAL MEDICAL PROBLEM - General Chief Complaint: Genitourinary Problem Stated Complaint: blatter infection Time Seen by Provider: 09/04/19 18:12 Source of Information: Reports: Patient History Limitations: Reports: No Limitations - History of Present Illness INITIAL COMMENTS - FREE TEXT/NARRATIVE: Patient comes emergency department today with complaints of sudden onset of urinary frequency and dysuria. About noon today the patient suddenly started to notice that she had painful urination. She has been urinating more frequently. She has had no fever chills or body aches. No nausea no vomiting. No other abdominal pain other than some suprapubic burning sensation. Does complain of some intermittent pain in her mid back. No recent falls or trauma to her back. No vaginal discharge drainage or foul smells no dyspareunia. - Related Data Allergies Allergy/AdvReac Type Severity Reaction Status Date / Time No Known Allergies Allergy Verified 09/04/19 18:08 Home Meds: Home Meds . 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 Musculoskeletal History: Reports: None Neurological History: Reports: None Psychiatric History: Reports: None Endocrine/Metabolic History: Reports: None Hematologic History: Reports: None Immunologic History: Reports: None Oncologic (Cancer) History: Reports: None Dermatologic History: Reports: None - Infectious Disease History Infectious Disease History: Reports: None - Past Surgical History Head Surgeries/Procedures: Reports: None Musculoskeletal Surgical History: Reports: Other (See Below) Other Musculoskeletal Surgeries/Procedures:: left ankle surgery Social & Family History - Family History Family Medical History: Noncontributory HEENT: Reports: None Cardiac: Reports: None Respiratory: Reports: None GI: Reports: None - Tobacco Use Smoking Status *Q: Current Every Day Smoker Years of Tobacco use: 20 Packs/Tins Daily: 1 - Caffeine Use Caffeine Use: Reports: Coffee - Recreational Drug Use Recreational Drug Use: Yes Drug Use in Last 12 Months: Yes Recreational Drug Type: Reports: Methamphetamine - Living Situation & Occupation Living situation: Reports: with Family ED ROS GENERAL - Review of Systems Review Of Systems: Comprehensive ROS is negative, except as noted in HPI. ED EXAM, GI/ABD - Physical Exam Exam: See Below Exam Limited By: No Limitations General Appearance: Alert, WD/WN, No Apparent Distress Head: Atraumatic, Normocephalic Neck: Normal Inspection, Supple Respiratory/Chest: No Respiratory Distress, Lungs Clear, Normal Breath Sounds, No Accessory Muscle Use, Chest Non-Tender Cardiovascular: Normal Peripheral Pulses, Regular Rate, Rhythm GI/Abdominal Exam: Normal Bowel Sounds, Soft, Non-Tender, No Organomegaly (Female) Exam: Deferred Rectal (Female) Exam: Deferred Back Exam: Normal Inspection, Full Range of Motion. No: CVA Tenderness (L), CVA Tenderness (R) Extremities: Normal Inspection, Normal Range of Motion, Non-Tender, Normal Capillary Refill Neurological: Alert, Oriented, CN II-XII Intact, Normal Cognition, No Motor/Sensory Deficits Psychiatric: Normal Affect, Normal Mood Skin Exam: Warm, Dry, Intact, Normal Color Lymphatic: No Adenopathy Course - Vital Signs Last Recorded V/S: Last Vital Signs Temp 96.7 F L 09/04/19 18:08 Pulse 100 09/04/19 18:08 Resp 18 09/04/19 18:08 BP 126/76 09/04/19 18:08 Pulse Ox 100 09/04/19 18:08 - Orders/Labs/Meds Orders: Active Orders 24 hr Category Date Time Status CULTURE URINE [RM] Stat Lab 09/04/19 18:04 Received Labs: Laboratory Tests 09/04/19 09/04/19 09/04/19 Range/Units 18:04 18:27 18:27 WBC 9.5 (5.0-10.0) 10^3/uL RBC 4.55 (4.2-5.4) 10^6/uL Hgb 9.2 L (12.0-16.0) g/dL Hct 30.4 L (37.0-47.0) % MCV 66.8 L (80-100) fL MCH 20.2 L (27.0-34.0) pg MCHC 30.3 L (33.0-35.0) g/dL Plt Count 400 (150-450) 10^3/uL Neut % (Auto) 67.2 (42.2-75.2) % Lymph % (Auto) 23.4 (20.5-50.1) % [place] % (Auto) 7.0 (2-8) % Eos % (Auto) 2.0 (1.0-3.0) % Baso % (Auto) 0.4 (0.0-1.0) % Sodium 140 (136-145) mmol/L Potassium 3.9 (3.5-5.1) mmol/L Chloride 105 (98-107) mmol/L Carbon Dioxide 26 (21-32) mmol/L Anion Gap 12.9 (7-13) mEq/L BUN 7 (7-18) mg/dL Creatinine 0.94 (0.55-1.02) mg/dL Est Cr Clr Drug Dosing 80.25 mL/min Estimated GFR (MDRD) > 60 Glucose 78 (74-99) mg/dL Calcium 8.4 L (8.5-10.1) mg/dL C-Reactive Protein 0.2 (0.0-0.9) mg/dL Urine Color Yellow (YELLOW) Urine Appearance Cloudy (CLEAR) Urine pH 6.0 (5.0-9.0) Ur Specific [place] >= 1.030 (1.005-1.030) Urine Protein 30 H (NEGATIVE) Urine Glucose (UA) Negative (NEGATIVE) Urine Ketones Negative (NEGATIVE) Urine Occult Blood Negative (NEGATIVE) Urine Nitrite Negative (NEGATIVE) Urine Bilirubin Negative (NEGATIVE) Urine Urobilinogen 0.2 (0.2-1.0) mg/dL Ur Leukocyte Esterase Small H (NEGATIVE) Urine RBC 0-5 /HPF Urine WBC 30-40 H (0-5/HPF) /HPF Ur Epithelial Cells Many H (NOT SEEN) /HPF Amorphous Sediment Few (NOT SEEN) /HPF Urine Bacteria Moderate H (0-FEW/HPF) /HPF Urine Mucus Moderate H (NOT SEEN) /LPF Meds: Medications Discontinued Medications Generic Name Dose Route Start Last Admin Trade Name Freq PRN Reason Stop Dose Admin Ceftriaxone Sodium 1 gm/ 0 gm 09/04/19 18:50 Lidocaine HCl 2.1 ml IM 09/04/19 18:51 ONETIME ONE Phenazopyridine HCl 190 mg 09/04/19 18:19 09/04/19 18:23 Urinary Pain Relief PO 09/04/19 18:20 190 mg ONETIME ONE Administration - Re-Assessments/Exams Free Text/Narrative Re-Assessment/Exam: 09/04/19 19:01 Urine is infectious. UC pending. Normal WBC. Ceftriaxone 1 gram IM Cephalexin and pyridium at home. Discharge instruction as below was explained to the patients. SHe was comfortable with the plan and her questions answered. Departure - Departure Time of Disposition: 18:55 Disposition: Home, Self-Care 01 Clinical Impression: UTI, Urinary tract infectious disease - Discharge Information Instructions: Urinary Tract Infection, Adult, [id number], Antibiotic Medicine, Adult, [id number] Forms: ED Department Discharge Additional Instructions: Lots of fluids over the next few days. Tylenol and or Ibuprofen as needed for pain. Cephalexin 1 capsule 4 times a day for the next 7 days. RX given to the patient start tomorrow. Pyridium 1 tablet three times a day for the next 3 days. RX given to the patient. Return to the ED if new or worsening symptoms. Follow up with PCP in the next 4-6 days if not improving sooner if worse. Sepsis Event Note (ED) - Evaluation Sepsis Screening Result: No Definite Risk - Focused Exam Vital Signs: Vital Signs Temp Pulse Resp BP Pulse Ox 09/04/19 18:08 96.7 F L 100 18 126/76 100 - My Orders Last 24 Hours: My Active Orders 09/04/19 18:04 CULTURE URINE [RM] Stat - Assessment/Plan Last 24 Hours: My Active Orders 09/04/19 18:04 CULTURE URINE [RM] Stat Assessment:: UTI Plan: Lots of fluids over the next few days. Tylenol and or Ibuprofen as needed for pain. Cephalexin 1 capsule 4 times a day for the next 7 days. RX given to the patient start tomorrow. Pyridium 1 tablet three times a day for the next 3 days. RX given to the patient. Return to the ED if new or worsening symptoms. Follow up with PCP in the next 4-6 days if not improving sooner if worse.
[2019-09-04] MEDS ORDERED: Phenazopyridine 95 MG Tab PO ONE (18:19)
[2019-09-04 18:46] LABS: ANION GAP 12.9 mEq/L (7-13); CHLORIDE,CL 105 mmol/L (98-107); SODIUM,NA 140 mmol/L (136-145)
[2019-09-04] MEDS ORDERED: cefTRIAXone 1 GM, Lidocaine 1% 2.1 ML IM ONE ×2 (18:50)
== END 2019-09-04 19:56 | disposition home or self-care (01) ==
LOC: DL.ED 17:59
DX: N39.0 Urinary tract infection, site not specified (principal); F17.210 Nicotine dependence, cigarettes, uncomplicated
CPT/HCPCS: 36415; 80048; 81001; 85025; 86140; 87086; 96372; 99283; A9270; J0696; J2001; 87088; 87186

== ENCOUNTER 2019-11-24 16:17 | Emergency (ER) | payer MEDICAID ==
[2019-11-24 16:34] VITALS: BP 122/72; PULSE 103
[2019-11-24] MEDS ORDERED: Acetaminophen 325 MG Tab PO ONE (16:47)
[2019-11-24] MEDS ORDERED: Codeine/Promethazine 10-6.25 MG/5 ML Syrup 5 ML UD Cup PO ONE (16:47)
[2019-11-24 17:35] LABS: ANION GAP 12.8 mEq/L (7-13); CHLORIDE,CL 98 mmol/L (98-107); SODIUM,NA 133 mmol/L (136-145)
--- NOTE | 2019-11-24 17:48 | EDM.PDOC ---
"Scribed by Adrienne Rodriguez 11/24/19 3650 for Greyson Hanna MD ED HPI GENERAL MEDICAL PROBLEM - General Chief Complaint: General Stated Complaint: FEVER,COUGH,BODY ACHES,CHILLS,FATIGUE [id number] Time Seen by Provider: 11/24/19 16:40 Source of Information: Reports: Patient, RN, RN Notes Reviewed History Limitations: Reports: No Limitations - History of Present Illness INITIAL COMMENTS - FREE TEXT/NARRATIVE: Patient presents to ED by POV with onset of symptoms last night, subjective fever but she has not taken temperature. She has a headache, body aches, fat igue, runny nose, and cough with green sputum. Denies any sore throat. Did not take any Tylenol or Ibuprofen as she states she did not have any. Was COVID tested about a month ago at the [facility] and was negative as part of a mass testing event. Denies any known exposure to COVID. Onset: Sudden Onset Date: 11/23/19 Duration: Constant, Getting Worse Location: Reports: Generalized Quality: Reports: Ache Severity: Moderate Improves with: Reports: None Worsens with: Reports: None Associated Symptoms: Reports: No Other Symptoms Generalized Pain Score (Numeric/FACES): 6 - Related Data Allergies Allergy/AdvReac Type Severity Reaction Status Date / Time No Known Allergies Allergy Verified 11/24/19 16:32 Home Meds: Home Meds . 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 Musculoskeletal History: Reports: None Neurological History: Reports: None Psychiatric History: Reports: None Endocrine/Metabolic History: Reports: None Hematologic History: Reports: None Immunologic History: Reports: None Oncologic (Cancer) History: Reports: None Dermatologic History: Reports: None - Infectious Disease History Infectious Disease History: Reports: None - Past Surgical History Head Surgeries/Procedures: Reports: None Musculoskeletal Surgical History: Reports: Other (See Below) Other Musculoskeletal Surgeries/Procedures:: left ankle surgery Social & Family History - Family History Family Medical History: Noncontributory HEENT: Reports: None Cardiac: Reports: None Respiratory: Reports: None GI: Reports: None - Tobacco Use Smoking Status *Q: Current Every Day Smoker Years of Tobacco use: 15 Packs/Tins Daily: 0.5 - Caffeine Use Caffeine Use: Reports: Coffee - Recreational Drug Use Recreational Drug Use: No - Living Situation & Occupation Living situation: Reports: with Family ED ROS GENERAL - Review of Systems Review Of Systems: Comprehensive ROS is negative, except as noted in HPI. ED EXAM, GENERAL - Physical Exam Exam: See Below Exam Limited By: No Limitations General Appearance: Alert, No Apparent Distress, Obese Eye Exam: Bilateral Eye: Normal Inspection Ears: Normal External Exam, Normal Canal, Hearing Grossly Normal, Normal TMs Nose: No Blood, Nasal Drainage Throat/Mouth: Normal Inspection, Normal Lips, Normal Oropharynx, Normal Voice, No Airway Compromise Head: Atraumatic, Normocephalic Neck: Normal Inspection, Supple, Non-Tender, Full Range of Motion. No: Lymphadenopathy (L), Lymphadenopathy (R) Respiratory/Chest: No Respiratory Distress, Lungs Clear, Normal Breath Sounds, No Accessory Muscle Use, Chest Non-Tender, Other (Moist cough). No: Crackles, Rales, Rhonchi, Wheezing, Stridor Cardiovascular: Regular Rate, Rhythm, No Edema, Tachycardia GI/Abdominal: Normal Bowel Sounds, Soft, Non-Tender, No Organomegaly, No Distention, No Abnormal Bruit, No Mass Back Exam: Normal Inspection. No: CVA Tenderness (L), CVA Tenderness (R) Extremities: Normal Inspection Neurological: Alert, Oriented, CN II-XII Intact, Normal Cognition, Normal Gait, No Motor/Sensory Deficits Psychiatric: Normal Affect, Normal Mood Skin Exam: Warm, Dry, Intact, Normal Color, No Rash Course - Vital Signs Last Recorded V/S: Last Vital Signs Temp 98.5 F 11/24/19 16:33 Pulse 103 H 11/24/19 16:33 Resp 16 11/24/19 16:33 BP 122/72 11/24/19 16:33 Pulse Ox 100 11/24/19 16:33 - Orders/Labs/Meds Orders: Active Orders 24 hr Category Date Time Status Chest 1V Frontal [CR] Stat Exams 11/24/19 16:46 Taken CORONAVIRUS COVID-19 PCR PHL Routine Lab 11/24/19 17:00 Received CULTURE STREP A CONFIRMATION [RM] Stat Lab 11/24/19 17:00 Results STREP SCRN A RAPID W CULT CONF [RM] Stat Lab 11/24/19 17:00 Results Isolation [COMM] Routine Oth 11/24/19 16:45 Active Labs: Laboratory Tests 11/24/19 11/24/19 Range/Units 17:05 17:05 WBC 4.7 L (5.0-10.0) 10^3/uL RBC 4.79 (4.2-5.4) 10^6/uL Hgb 9.6 L (12.0-16.0) g/dL Hct 30.9 L (37.0-47.0) % MCV 64.5 L (80-100) fL MCH 20.0 L (27.0-34.0) pg MCHC 31.1 L (33.0-35.0) g/dL Plt Count 298 D (150-450) 10^3/uL Neut % (Auto) 61.8 (42.2-75.2) % Lymph % (Auto) 24.9 (20.5-50.1) % [place] % (Auto) 12.9 H (2-8) % Eos % (Auto) 0.0 L (1.0-3.0) % Baso % (Auto) 0.4 (0.0-1.0) % Sodium 133 L (136-145) mmol/L Potassium 3.8 (3.5-5.1) mmol/L Chloride 98 (98-107) mmol/L Carbon Dioxide 26 (21-32) mmol/L Anion Gap 12.8 (7-13) mEq/L BUN 7 (7-18) mg/dL Creatinine 0.98 (0.55-1.02) mg/dL Est Cr Clr Drug Dosing 76.21 mL/min Estimated GFR (MDRD) > 60 BUN/Creatinine Ratio 7.1 (No establ ref range) Glucose 81 (74-99) mg/dL Calcium 8.4 L (8.5-10.1) mg/dL Total Bilirubin 0.2 (0.2-1.0) mg/dL AST 20 (15-37) U/L ALT 29 (14-59) U/L Alkaline Phosphatase 103 (46-116) U/L C-Reactive Protein 2.6 H (0.0-0.9) mg/dL Total Protein 8.1 (6.4-8.2) g/dL Albumin 3.4 (3.4-5.0) g/dL Globulin 4.7 Albumin/Globulin Ratio 0.7 Rapid strep: Negative. Influenza A and B: Negative. Meds: Medications Discontinued Medications Generic Name Dose Route Start Last Admin Trade Name Agusq PRN Reason Stop Dose Admin Acetaminophen 650 mg 11/24/19 16:47 11/24/19 17:05 Tylenol PO 11/24/19 16:48 650 mg NOW ONE Administration Promethazine HCl/Codeine 10 ml 11/24/19 16:47 11/24/19 17:05 Phenergan With Codeine PO 11/24/19 16:48 10 ml ONETIME ONE Administration - Radiology Interpretation Free Text/Narrative:: [facility] Final Radiology Report Call: [phone] assistance Online chat: [email or web address] Name: RICHARD TAYLOR Age: 39Years F Date: 11/24/2019 SSN: -- : 1980 Study: CR CHEST 1V FRONTAL Requesting Physician: GREYSON HANNA Images: 1 Addl Studies: Provided Clinical History: chest pain, cough, fever, possible COVID Contrast: Contrast Medium: Contrast Amount: Contrast Method: Page 1 of 2 PROCEDURE INFORMATION: Exam: XR Chest, 1 View Exam date and time: 11/24/2019 5:10 PM Age: 39 years old Clinical indication: Cough and fever; Chest pain; Additional info: Chest pain, cough, fever, possible covid TECHNIQUE: Imaging protocol: XR of the chest Views: 1 view. COMPARISON: CR Chest 1V Frontal 10/11/2016 9:52 PM FINDINGS: Tubes, catheters and devices: There are several leads over the chest. Patient is broad is still on the patient with underwire and back clips seen. There is an oblong structure which is metallic density just to the right of the heart overlying the right pulmonary artery. Lungs: Lungs are clear. Pleural space: Unremarkable. No pleural effusion. No pneumothorax. Heart/Mediastinum: Heart size is normal limits. Bones/joints: Unremarkable. IMPRESSION: No evidence of acute pulmonary disease. Please correlate with the patient's clothing for the oblong shaped metallic object. Thank you for allowing us to participate in the care of your patient. Dictated and Authenticated by: Samantha Lilly MD RICHARD TAYLOR | Final Radiology Re port CONFIDENTIALITY STATEMENT This report is intended only for use by the referring physician, and only in accordance with law. If you received this in error, call [phone]. Page 2 of 2 11/24/2019 5:45 PM Central Time ([place] & [place]) Departure - Departure Time of Disposition: 17:45 Disposition: Home, Self-Care 01 Condition: Good Clinical Impression: Suspected COVID-19 virus infection - Discharge Information *PRESCRIPTION DRUG MONITORING PROGRAM REVIEWED*: Not Applicable *COPY OF PRESCRIPTION DRUG MONITORING REPORT IN PATIENT ILSA: Not Applicable Instructions: COVID-19, Viral Respiratory Infection Forms: ED Department Discharge Additional Instructions: Rx: Tessalon Perles 200mg Rx: Tylenol 500mg Self quarantine at home until your COVID test results are available, and for 14 days if COVID positive. Call 911 is you develop any difficulty breathing. Sepsis Event Note (ED) - Evaluation Sepsis Screening Result: No Definite Risk - Focused Exam Vital Signs: Vital Signs Temp Pulse Resp BP Pulse Ox 11/24/19 16:33 98.5 F 103 H 16 122/72 100 - My Orders Last 24 Hours: My Active Orders 11/24/19 16:45 Isolation [COMM] Routine 11/24/19 16:46 Chest 1V Frontal [CR] Stat 11/24/19 17:00 CORONAVIRUS COVID-19 PCR PHL Routine CULTURE STREP A CONFIRMATION [RM] Stat STREP SCRN A RAPID W CULT CONF [RM] Stat - Assessment/Plan Last 24 Hours: My Active Orders 11/24/19 16:45 Isolation [COMM] Routine 11/24/19 16:46 Chest 1V Frontal [CR] Stat 11/24/19 17:00 CORONAVIRUS COVID-19 PCR PHL Routine CULTURE STREP A CONFIRMATION [RM] Stat STREP SCRN A RAPID W CULT CONF [RM] Stat I have read and agree with the documentation that has been completed regarding this visit. By signing this record, I attest that the documentation was completed in my physical presence and is an accurate record of the encounter."
== END 2019-11-24 18:19 | disposition home or self-care (01) ==
LOC: DL.ED 16:17
DX: R50.9 Fever, unspecified (principal); R51 Headache; F17.210 Nicotine dependence, cigarettes, uncomplicated; Z20.828 Contact with and (suspected) exposure to other viral communicable diseases
CPT/HCPCS: 36415; 71045; 80053; 85025; 86140; 87081; 87430; 87635; 87804; 99283; A9270; U0002

== ENCOUNTER 2020-11-15 19:00 | Emergency (ER) | payer MEDICAID ==
[2020-11-15 19:39] VITALS: BP 120/81; PULSE 96
--- NOTE | 2020-11-15 20:13 | CR ---
PROCEDURE INFORMATION: Exam: XR Right Foot Exam date and time: 11/15/2020 7:42 PM Age: 40 years old Clinical indication: Other: Pain--no trauma; Additional info: Fall, right heep pain TECHNIQUE: Imaging protocol: XR Right foot. Views: 1 or 2 views. COMPARISON: No relevant prior studies available. FINDINGS: Bones/joints: Normal. Soft tissues: Normal. IMPRESSION: No acute findings.
--- NOTE | 2020-11-15 20:15 | CR ---
PROCEDURE INFORMATION: Exam: XR Left Ankle Exam date and time: 11/15/2020 7:40 PM Age: 40 years old Clinical indication: Other: Fall/pain; Prior surgery; Surgery date: 6+ months; Surgery type: Screws and plate in ankle--hardware then removed; Additional info: Fall pain TECHNIQUE: Imaging protocol: XR Left ankle. Views: 3 or more views. COMPARISON: CR ANKLE LT 3 VIEW 01/14/2009 7:28 PM FINDINGS: Bones/joints: Plantar calcaneal spur. No acute fracture or dislocation. Soft tissues: Normal. IMPRESSION: No acute fracture or dislocation.
--- NOTE | 2020-11-15 20:44 | EDM.PDOC ---
ED HPI GENERAL MEDICAL PROBLEM - General Chief Complaint: Lower Extremity Injury/Pain Stated Complaint: FELL HURT LEGS Time Seen by Provider: 11/15/20 20:35 Source of Information: Reports: Patient History Limitations: Reports: No Limitations - History of Present Illness INITIAL COMMENTS - FREE TEXT/NARRATIVE: pain left oter ankle and right heel post fall on ramp. idd not hit head. concerned, prior remote fx to left ankle. Treatments OYSTER CULLER: Reports: Other (see below) Other Treatments OYSTER CULLER: none Left Anterior Ankle Pain Score (Numeric/FACES): 6 - Related Data Allergies Allergy/AdvReac Type Severity Reaction Status Date / Time No Known Allergies Allergy Verified 11/15/20 19:39 Home Meds: Home Meds . 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 Musculoskeletal History: Reports: Fracture Neurological History: Reports: None Psychiatric History: Reports: None Endocrine/Metabolic History: Reports: None Hematologic History: Reports: None Immunologic History: Reports: None Oncologic (Cancer) History: Reports: None Dermatologic History: Reports: None - Infectious Disease History Infectious Disease History: Reports: None - Past Surgical History Head Surgeries/Procedures: Reports: None Musculoskeletal Surgical History: Reports: ORIF, Other (See Below) Other Musculoskeletal Surgeries/Procedures:: left ankle surgery - subsequent removal of hardware Social & Family History - Family History Family Medical History: No Pertinent Family History HEENT: Reports: None Cardiac: Reports: None Respiratory: Reports: None GI: Reports: None - Tobacco Use Tobacco Use Status *Q: Current Every Day Tobacco User Years of Tobacco use: 22 Packs/Tins Daily: 0.3 - Caffeine Use Caffeine Use: Reports: Coffee, Soda - Recreational Drug Use Recreational Drug Use: Yes Drug Use in Last 12 Months: Yes Recreational Drug Type: Reports: Methamphetamine Other Recreational Drug Type: states last use was 3 days ago - Living Situation & Occupation Living situation: Reports: with Family Review of Systems - Review of Systems Review Of Systems: Comprehensive ROS is negative, except as noted in HPI. ED EXAM, GENERAL - Physical Exam Exam: See Below Exam Limited By: No Limitations General Appearance: Alert, Anxious, Mild Distress Eye Exam: Bilateral Eye: EOMI Ears: Normal External Exam, Hearing Grossly Normal Neck: Full Range of Motion Respiratory/Chest: No Respiratory Distress, Normal Breath Sounds Cardiovascular: Normal Peripheral Pulses, Regular Rate, Rhythm Extremities: Joint Swelling (mild lateral left ankle), Limited Range of Motion (mild flexion extension left ankle) Neurological: Alert, Oriented Psychiatric: Normal Affect, Normal Mood Skin Exam: Warm, Dry, Intact, Normal Color Course - Vital Signs Last Recorded V/S: Last Vital Signs Temp 97.4 F 11/15/20 19:20 Pulse 96 11/15/20 19:20 Resp 20 11/15/20 19:20 BP 120/81 11/15/20 19:20 Pulse Ox 100 11/15/20 19:20 Departure - Departure Time of Disposition: 20:41 Disposition: Home, Self-Care 01 Condition: Good Clinical Impression: Fall Qualifiers: Encounter type: initial encounter Qualified Code(s): W19.XXXA - Unspecified fall, initial encounter Left ankle sprain Qualifiers: Encounter type: initial encounter Involved ligament of ankle: unspecified ligament Qualified Code(s): S93.402A - Sprain of unspecified ligament of left ankle, initial encounter - Discharge Information *PRESCRIPTION DRUG MONITORING PROGRAM REVIEWED*: No *COPY OF PRESCRIPTION DRUG MONITORING REPORT IN PATIENT ILSA: No Instructions: Ankle Sprain, [id number] Additional Instructions: clinic follow up on eweek if not improving weight bearing as tolerated anna wrap left ankle ice , elevate alternate tylenol and ibuprofen every 4 hours as needed for discomfort Sepsis Event Note (ED) - Evaluation Sepsis Screening Result: No Definite Risk - Focused Exam Vital Signs: Vital Signs Temp Pulse Resp BP Pulse Ox 11/15/20 19:20 97.4 F 96 20 120/81 100
== END 2020-11-15 20:49 | disposition home or self-care (01) ==
LOC: DL.ED 19:00
DX: S93.402A Sprain of unspecified ligament of left ankle, initial encounter (principal); Z72.0 Tobacco use; X50.1XXA Overexertion from prolonged static or awkward postures, initial encounter; Y92.009 Unspecified place in unspecified non-institutional (private) residence as the place of occurrence of the external cause
CPT/HCPCS: 73610-LT; 73620-RT; 99283-25

== ENCOUNTER 2020-11-28 14:51 | Emergency (ER) | payer MEDICAID ==
[2020-11-28 15:11] VITALS: BP 113/85; PULSE 125
== END 2020-11-28 22:48 | disposition left against medical advice (07) ==
LOC: DL.ED 14:51
DX: Z53.21 Procedure and treatment not carried out due to patient leaving prior to being seen by health care provider (principal)

== ENCOUNTER 2021-10-18 12:40 | Emergency (ER) | payer MEDICAID ==
[2021-10-18] MEDS ORDERED: metroNIDAZOLE 250 MG Tab PO ONE ×2 (12:41→14:46)
[2021-10-18 13:34] LABS: CORONAVIRUS COVID-19 NAA NEGATIVE (NEGATIVE)
[2021-10-18 13:48] VITALS: BP 99/69; PULSE 118
[2021-10-18] MEDS ORDERED: cefTRIAXone 1 GM, Lidocaine 1% 2.1 ML IM ONE ×2 (15:16)
[2021-10-18 15:24] LABS: ANION GAP 16.5 mEq/L (7-13)
[2021-10-18] MEDS ORDERED: metroNIDAZOLE 250 MG Tab ONE (15:25)
[2021-10-21 12:48] LABS: C.TRACHOMATIS BY TMA Negative (Negative); N.GONORRHOEAE BY TMA Negative (Negative)
== END 2021-10-18 15:32 | disposition home or self-care (01) ==
LOC: DL.ED 12:40
DX: N76.0 Acute vaginitis (principal); B96.89 Other specified bacterial agents as the cause of diseases classified elsewhere; F17.210 Nicotine dependence, cigarettes, uncomplicated; Z20.822 Contact with and (suspected) exposure to COVID-19
CPT/HCPCS: 0240U; 36415; 80053; 81001; 81025; 85025; 87086; 87491; 87563; 87591; 96372; 99283; A9270; J0696; 99284

== ENCOUNTER 2022-01-22 15:26 | Emergency (ER) | payer MEDICAID ==
[2022-01-22 16:01] VITALS: BP 147/82; PULSE 110
[2022-01-22] MEDS ORDERED: Lidocaine 2% with EPINEPHrine 1:200,000 20 ML SDV INJECT ONE (16:56)
[2022-01-22] MEDS ORDERED: Doxycycline Monohydrate 100 MG Cap PO ONE (17:27)
== END 2022-01-22 17:43 | disposition home or self-care (01) ==
LOC: DL.ED 15:26
DX: L02.416 Cutaneous abscess of left lower limb (principal); L03.116 Cellulitis of left lower limb; Z72.0 Tobacco use
CPT/HCPCS: 10060; 87070; 87077; 87186; 87205; 99283; A9270

== ENCOUNTER 2022-01-24 10:05 | Emergency (ER) | payer MEDICAID ==
[2022-01-24] MEDS ORDERED: Clindamycin HCl 150 MG Cap PO ONE (10:06)
[2022-01-24 10:45] VITALS: BP 142/76; PULSE 115
[2022-01-24] MEDS ORDERED: Clindamycin HCl 150 MG Cap ONE (11:25)
== END 2022-01-24 11:30 | disposition home or self-care (01) ==
LOC: DL.ED 10:05
DX: L03.114 Cellulitis of left upper limb (principal); F17.210 Nicotine dependence, cigarettes, uncomplicated
CPT/HCPCS: 99283; A9270

== ENCOUNTER 2022-04-26 14:08 | Emergency (ER) | payer MEDICAID ==
[2022-04-26 14:23] VITALS: BP 103/66; PULSE 93
[2022-04-26] MEDS ORDERED: Orphenadrine 60 MG/2 ML Inj IM ONE (15:39)
[2022-04-26] MEDS ORDERED: Ketorolac 30 MG/ML SDV IM ONE (15:39)
[2022-04-26 16:06] LABS: AMPHETAMINES,URINE POSITIVE (NEGATIVE); BARBITURATES,URINE NEGATIVE (NEGATIVE); BENZODIAZEPINE,URINE NEGATIVE (NEGATIVE); MDMA (ECSTASY), URINE NEGATIVE (NEGATIVE); METHADONE,URINE NEGATIVE (NEGATIVE); METHAMPHETAMINES,URINE POSITIVE (NEGATIVE); OPIATES,URINE NEGATIVE (NEGATIVE); OXYCODONE,URINE NEGATIVE (NEGATIVE); PHENCYCLIDINE,URINE NEGATIVE (NEGATIVE); TCA,URINE NEGATIVE (NEGATIVE)
== END 2022-04-26 16:26 | disposition home or self-care (01) ==
LOC: DL.ED 14:08
DX: M62.830 Muscle spasm of back (principal); F17.210 Nicotine dependence, cigarettes, uncomplicated
CPT/HCPCS: 72100; 80305-QW; 81001; 81025; 87086; 96372; 99284; J1885; J2360

== ENCOUNTER 2023-02-13 08:07 | Emergency (ER) | payer MEDICAID ==
[2023-02-13 08:18] VITALS: BP 137/82; PULSE 110
[2023-02-13 08:20] LABS: APPEARANCE,URINE SLIGHTLY CLOUDY (CLEAR); BILIRUBIN,URINE NEGATIVE (NEGATIVE); COLOR,URINE YELLOW (YELLOW); GLUCOSE,URINE NEGATIVE (NEGATIVE); KETONES,URINE TRACE (NEGATIVE); LEUKOCYTE ESTERASE,URINE LARGE (NEGATIVE); NITRITE,URINE NEGATIVE (NEGATIVE); OCCULT BLOOD,URINE LARGE (NEGATIVE); PH,URINE 6.5 (5.0-9.0); PROTEIN,URINE 30 (NEGATIVE)
[2023-02-13] MEDS ORDERED: cefTRIAXone 1 GM, Lidocaine 1% 2.1 ML IM ONE ×2 (08:29)
[2023-02-13] MEDS ORDERED: Take Home: Phenazopyridine 95 MG Tab, 4 Tab Pack PO ONE (08:29)
[2023-02-13 08:36] LABS: EPITHELIAL CELLS,URINE MODERATE /HPF (NOT SEEN); WBC,URINE >100 /HPF (0-5/HPF)
[2023-02-13 08:37] LABS: BACTERIA,URINE FEW /HPF (0-FEW/HPF); MUCUS,URINE RARE /LPF (NOT SEEN)
== END 2023-02-13 08:50 | disposition home or self-care (01) ==
LOC: DL.ED 08:07
DX: N30.01 Acute cystitis with hematuria (principal)
CPT/HCPCS: 81001; 81025; 87086; 87088; 87186; 87491; 87563; 87591; 96372; 99283; A9270-GY; J0696; J3490

== ENCOUNTER 2023-05-02 06:00 | Day surgery (SDC) | payer MEDICAID ==
[2023-05-02] MEDS ORDERED: Midazolam 1 MG/ML 2 ML SDV IV ONE (06:01)
[2023-05-02] MEDS ORDERED: fentaNYL 100 MCG/2 ML SDV IV ONE (06:01)
[2023-05-02] MEDS ORDERED: Midazolam 1 MG/ML 2 ML SDV ONE (06:24)
[2023-05-02] MEDS ORDERED: fentaNYL 100 MCG/2 ML SDV ONE (06:24)
[2023-05-02] MEDS: Dextrose 5%-0.45% NaCl 1,000 ML IV SCH (07:20)
[2023-05-02] MEDS: fentaNYL 100 MCG/2 ML SDV IV ONE ×2 (07:36→07:37)
[2023-05-02] MEDS: Midazolam 1 MG/ML 2 ML SDV IV ONE ×2 (07:37→07:38)
[2023-05-02 08:45] VITALS: PULSE 85
[2023-05-02 09:13] VITALS: BP 110/64
== END 2023-05-02 09:50 | disposition home or self-care (01) ==
LOC: DL.ENDO 06:00
PROVIDERS: ATTEND Internal Medicine Gastroenterology
DX: K29.50 Unspecified chronic gastritis without bleeding (principal); K21.9 Gastro-esophageal reflux disease without esophagitis; K44.9 Diaphragmatic hernia without obstruction or gangrene; E66.09 Other obesity due to excess calories; Z68.32 Body mass index [BMI] 32.0-32.9, adult
CPT/HCPCS: 43239; 87077; J2250; J3010; J7042

== ENCOUNTER 2023-06-20 08:41 | Day surgery (SDC) | payer MEDICAID ==
[~2023-06-20 08:41] MED LIST: Sodium Chloride 0.9% 10 ML Syringe FLUSH PRN
[2023-06-20] MEDS ORDERED: Midazolam 1 MG/ML 2 ML SDV IV ONE (08:42)
[2023-06-20] MEDS ORDERED: fentaNYL 100 MCG/2 ML SDV IV ONE (08:42)
[2023-06-20] MEDS ORDERED: Propofol 200 MG/20 ML SDV IV ONE (08:42)
[2023-06-20] MEDS ORDERED: Bupivacaine 0.5% 30 ML SDV ONE (08:46)
[2023-06-20] MEDS ORDERED: Lidocaine 1% 30 ML SDV ONE (08:47)
[2023-06-20] MEDS: Lactated Ringers 1,000 ML IV SCH (10:00)
[2023-06-20] MEDS: Clindamycin in 0.9 % Sod Chlor 600 MG in Premix Bag 1 BAG IV ONE (10:00)
[2023-06-20] MEDS: Bupivacaine 0.5% 30 ML SDV INJECT ONE (10:22)
[2023-06-20] MEDS: Lidocaine 1% 30 ML SDV INJECT ONE (10:23)
[2023-06-20 13:03] VITALS: BP 116/70
[2023-06-20 13:45] VITALS: PULSE 72
== END 2023-06-20 11:30 | disposition home or self-care (01) ==
LOC: DL.SDS 08:41
PROVIDERS: ATTEND Podiatrist Foot & Ankle Surgery
DX: M20.41 Other hammer toe(s) (acquired), right foot (principal); K21.9 Gastro-esophageal reflux disease without esophagitis; D64.9 Anemia, unspecified; F17.210 Nicotine dependence, cigarettes, uncomplicated; Z79.899 Other long term (current) drug therapy
CPT/HCPCS: 01480; 28285; J0665; J2250; J2704; J3010; J3490; J7120

== ENCOUNTER 2023-07-01 06:26 | Day surgery (SDC) | payer MEDICAID ==
[~2023-07-01 06:26] MED LIST changes: +Midazolam 1 MG/ML 2 ML SDV ONE; -Sodium Chloride 0.9% 10 ML Syringe FLUSH PRN; +fentaNYL 100 MCG/2 ML SDV ONE
[2023-07-01] MEDS: Dextrose 5%-0.45% NaCl 1,000 ML IV SCH (06:45)
[2023-07-01] MEDS: fentaNYL 100 MCG/2 ML SDV IV ONE ×2 (08:02→08:03)
[2023-07-01] MEDS: Midazolam 1 MG/ML 2 ML SDV IV ONE ×2 (08:03→08:04)
[2023-07-01 10:07] VITALS: BP 132/88; PULSE 73
== END 2023-07-01 09:40 | disposition home or self-care (01) ==
LOC: DL.ENDO 06:26
PROVIDERS: ATTEND Internal Medicine Gastroenterology
DX: K21.00 Gastro-esophageal reflux disease with esophagitis, without bleeding (principal); K22.70 Barrett's esophagus without dysplasia; K31.84 Gastroparesis; E66.9 Obesity, unspecified; Z68.32 Body mass index [BMI] 32.0-32.9, adult
CPT/HCPCS: 43239; J2250; J3010; J7042

== ENCOUNTER 2023-09-06 15:42 | Emergency (ER) | payer MEDICAID ==
[2023-09-06] MEDS: Vancomycin 1.5 GM in Sodium Chloride 0.9% 500 ML IV ONE (16:36)
[2023-09-06] MEDS: Lidocaine 2% 20 ML MDV ONE (16:37)
[2023-09-06 17:52] VITALS: BP 117/92; PULSE 78
== END 2023-09-06 18:06 | disposition left against medical advice (07) ==
LOC: DL.ED 15:42
DX: L02.414 Cutaneous abscess of left upper limb (principal); Z88.5 Allergy status to narcotic agent; Z88.6 Allergy status to analgesic agent; Z88.0 Allergy status to penicillin; Z79.899 Other long term (current) drug therapy
CPT/HCPCS: 10060; 87070; 96365; 99283; J3370; J7040; 87077; J3490

== ENCOUNTER 2024-02-10 15:26 | Emergency (ER) | payer MEDICAID ==
[2024-02-10 16:25] LABS: BASOPHILS PERCENT AUTO 0.2 % (0.0-1.0); EOSINOPHILS PERCENT AUTO 0.6 % (1.0-3.0); HEMATOCRIT 38.9 % (37.0-47.0); HEMOGLOBIN 12.8 g/dL (12.0-16.0); LYMPHOCYTES PERCENT AUTO 7.3 % (20.5-50.1); MEAN CORPUSCULAR HEMOGLOBIN 27.9 pg (27.0-34.0); MEAN CORPUSCULAR HGB CONC 32.9 g/dL (33.0-35.0); MEAN CORPUSCULAR VOLUME 84.9 fL (80-100); MONOCYTES PERCENT AUTO 5.6 % (2-8); NEUTROPHILS PERCENT AUTO 86.3 % (42.2-75.2); PLATELET COUNT,PLT 212 10^3/uL (150-450); RED BLOOD CELL COUNT 4.58 10^6/uL (4.2-5.4); WHITE BLOOD CELL COUNT,WBC 15.7 10^3/uL (5.0-10.0)
[2024-02-10 16:38] LABS: A/G RATIO 0.9; ALBUMIN 3.7 g/dL (3.4-5.0); ANION GAP 15.2 mEq/L (7-13); BILIRUBIN TOTAL 0.4 mg/dL (0.2-1.0); CALCIUM 8.7 mg/dL (8.5-10.1); EST CRCL DRUG DOSING (CG) 71.67 mL/min; MAGNESIUM 1.8 mg/dL (1.8-2.4); POTASSIUM,K 4.2 mmol/L (3.5-5.1); PROTEIN TOTAL,TP 7.7 g/dL (6.4-8.2)
[2024-02-10] MEDS: VANCOmycin 1 GM in Sodium Chloride 0.9% 250 ML IV ONE (16:39)
[2024-02-10 16:41] LABS: LACTIC ACID 1.7 mmol/L (0.4-2.0)
[2024-02-10 16:45] VITALS: BP 123/84; PULSE 108
== END 2024-02-10 18:27 | disposition home or self-care (01) ==
LOC: DL.ED 15:26
DX: L03.116 Cellulitis of left lower limb (principal); F17.210 Nicotine dependence, cigarettes, uncomplicated; Z86.16 Personal history of COVID-19; Z79.899 Other long term (current) drug therapy; Z88.0 Allergy status to penicillin; Z88.6 Allergy status to analgesic agent; Z88.5 Allergy status to narcotic agent
CPT/HCPCS: 36415; 80053; 83605; 83735; 85025; 96365; 99283; 99284; J7050

== ENCOUNTER 2024-02-11 13:12 | Inpatient (IN) | payer MEDICAID ==
[2024-02-11 15:43] LABS: A/G RATIO 0.8; ALBUMIN 3.5 g/dL (3.4-5.0); ANION GAP 15.8 mEq/L (7-13); BILIRUBIN TOTAL 0.6 mg/dL (0.2-1.0); BUN/CREATININE RATIO 8.4 (No establ ref range); CALCIUM 8.5 mg/dL (8.5-10.1); CREATININE 0.95 mg/dL (0.55-1.02); EST CRCL DRUG DOSING (CG) 75.44 mL/min; POTASSIUM,K 3.8 mmol/L (3.5-5.1)
[2024-02-11 15:48] LABS: LACTIC ACID 1.3 mmol/L (0.4-2.0)
[2024-02-11 16:09] LABS: BASOPHILS PERCENT AUTO 0.1 % (0.0-1.0); EOSINOPHILS PERCENT AUTO 0.1 % (1.0-3.0); HEMATOCRIT 38.2 % (37.0-47.0); HEMOGLOBIN 12.4 g/dL (12.0-16.0); LYMPHOCYTES PERCENT AUTO 9.9 % (20.5-50.1); MEAN CORPUSCULAR HEMOGLOBIN 27.7 pg (27.0-34.0); MEAN CORPUSCULAR HGB CONC 32.5 g/dL (33.0-35.0); MEAN CORPUSCULAR VOLUME 85.3 fL (80-100); MONOCYTES PERCENT AUTO 8.2 % (2-8); NEUTROPHILS PERCENT AUTO 81.7 % (42.2-75.2); PLATELET COUNT,PLT 306 10^3/uL (150-450); RED BLOOD CELL COUNT 4.48 10^6/uL (4.2-5.4); WHITE BLOOD CELL COUNT,WBC 18.4 10^3/uL (5.0-10.0)
[2024-02-11] MEDS: Lidocaine 1% 5 ML VIAL ONE (16:56)
[2024-02-11] MEDS: Sodium Chloride 0.9% 10 ML Syringe FLUSH PRN (17:00)
[2024-02-11] MEDS: VANCOmycin 1 GM in Sodium Chloride 0.9% 250 ML IV ONE ×2 (17:00→19:35)
[2024-02-11] MEDS: Sodium Chloride 0.9% 1,000 ML IV ONE (17:00)
[2024-02-11 17:01] LABS: C-REACTIVE PROTEIN 12.89 ng/dL (<=0.50)
[2024-02-11 17:04] LABS: HEMOGLOBIN A1C 5.4 % (<5.7)
[2024-02-11 17:49] LABS: AMPHETAMINES,URINE POSITIVE (NEGATIVE); BARBITURATES,URINE NEGATIVE (NEGATIVE); BENZODIAZEPINE,URINE POSITIVE (NEGATIVE); MDMA (ECSTASY), URINE POSITIVE (NEGATIVE); METHADONE,URINE NEGATIVE (NEGATIVE); METHAMPHETAMINES,URINE POSITIVE (NEGATIVE); OPIATES,URINE NEGATIVE (NEGATIVE); OXYCODONE,URINE NEGATIVE (NEGATIVE); PHENCYCLIDINE,URINE NEGATIVE (NEGATIVE); TCA,URINE NEGATIVE (NEGATIVE)
[2024-02-11] MEDS ORDERED: hydrALAZINE 20 MG/ML SDV IVPUSH PRN (19:33)
[2024-02-11] MEDS ORDERED: Metoprolol Tartrate 5 MG/5 ML SDV IVPUSH PRN (19:33)
[2024-02-11] MEDS ORDERED: Diltiazem 25 MG/5 ML SDV IVPUSH PRN (19:36)
[2024-02-11] MEDS ORDERED: Naloxone 2 MG/2 ML Syringe IVPUSH PRN (19:38)
[2024-02-11] MEDS ORDERED: LORazepam 2 MG/ML SDV IVPUSH PRN (19:44)
[2024-02-11] MEDS ORDERED: Flumazenil 0.1 MG/ML 5 ML MDV IVPUSH PRN (19:44)
[2024-02-11] MEDS ORDERED: Polyethylene Glycol 3350 Powder 17 GM Packet PO PRN (19:45)
[2024-02-11] MEDS ORDERED: Magnesium Hydroxide 400 MG/5 ML Susp 30 ML Cup PO PRN (19:45)
[2024-02-11] MEDS ORDERED: Albuterol/Ipratropium 3.0-0.5 MG/3 ML Neb Soln NEB PRN (19:45)
[2024-02-11] MEDS ORDERED: Sennosides/Docusate Sodium 50-8.6 MG Tab PO PRN (19:45)
[2024-02-11] MEDS ORDERED: Metoclopramide 10 MG/2 ML SDV IV PRN (19:45)
[2024-02-11] MEDS ORDERED: Ondansetron 4 MG/2 ML SDV IVPUSH PRN (19:45)
[2024-02-11] MEDS ORDERED: Acetaminophen/oxyCODONE 325-5 MG Tab PO PRN (19:45)
[2024-02-11] MEDS ORDERED: Acetaminophen 325 MG Tab PO PRN (19:45)
[2024-02-11] MEDS ORDERED: Temazepam 15 MG Cap PO PRN ×2 (19:45→22:16)
[2024-02-11] MEDS ORDERED: fentaNYL 100 MCG/2 ML SDV IVPUSH PRN (19:47)
[2024-02-11] MEDS: Saccharomyces Boulardii (Probiotic) 250 MG Cap PO SCH (20:01)
[2024-02-11] MEDS: diphenhydrAMINE 50 MG/ML SDV IVPUSH ONE (20:02)
[2024-02-11] MEDS: Dexamethasone 4 MG/ML SDV IVPUSH ONE (20:02)
[2024-02-11] MEDS: Famotidine 20 MG/2 ML SDV IVPUSH ONE (20:02)
[2024-02-11] MEDS: Ketorolac 30 MG/ML SDV IVPUSH ONE (20:51)
[2024-02-11] MEDS: Ampicillin/Sulbactam Na 3 GM in Sodium Chloride 0.9% 100 ML IV ONE (20:52)
[2024-02-11] MEDS: VANCOmycin 1 GM in Sodium Chloride 0.9% 250 ML IV SCH (20:54)
[2024-02-11] MEDS: Sodium Chloride 0.9% 1,000 ML IV SCH (22:30)
[2024-02-11] MEDS: Omeprazole 20 MG Cap.CR PO SCH (23:10)
[2024-02-12] MEDS: Famotidine 20 MG Tab PO SCH (05:55)
[2024-02-12] MEDS: Ampicillin/Sulbactam Na 1.5 GM in Sodium Chloride 0.9% 100 ML IV SCH (05:56)
[2024-02-12 07:24] LABS: BASOPHILS PERCENT AUTO 0.1 % (0.0-1.0); HEMATOCRIT 35.6 % (37.0-47.0); HEMOGLOBIN 11.6 g/dL (12.0-16.0); LYMPHOCYTES PERCENT AUTO 4.7 % (20.5-50.1); MEAN CORPUSCULAR HEMOGLOBIN 27.8 pg (27.0-34.0); MEAN CORPUSCULAR HGB CONC 32.6 g/dL (33.0-35.0); MEAN CORPUSCULAR VOLUME 85.2 fL (80-100); MONOCYTES PERCENT AUTO 3.7 % (2-8); NEUTROPHILS PERCENT AUTO 91.5 % (42.2-75.2); PLATELET COUNT,PLT 296 10^3/uL (150-450); RED BLOOD CELL COUNT 4.18 10^6/uL (4.2-5.4); WHITE BLOOD CELL COUNT,WBC 19.5 10^3/uL (5.0-10.0)
[2024-02-12 07:47] LABS: ALBUMIN 2.7 g/dL (3.4-5.0); ANION GAP 15.1 mEq/L (7-13); BILIRUBIN TOTAL 0.3 mg/dL (0.2-1.0); BUN/CREATININE RATIO 10.7 (No establ ref range); C-REACTIVE PROTEIN 13.71 ng/dL (<=0.50); CALCIUM 8.1 mg/dL (8.5-10.1); CREATININE 0.84 mg/dL (0.55-1.02); EST CRCL DRUG DOSING (CG) 85.32 mL/min; MAGNESIUM 1.9 mg/dL (1.8-2.4); POTASSIUM,K 4.1 mmol/L (3.5-5.1); PROTEIN TOTAL,TP 6.5 g/dL (6.4-8.2)
[2024-02-12 07:51] LABS: A/G RATIO 0.71
[2024-02-12] MEDS ORDERED: Naproxen 250 MG Tab PO SCH (09:00)
[2024-02-12] MEDS: Enoxaparin 40 MG/0.4 ML Syringe SUBCUT SCH (09:30)
[2024-02-12] MEDS: fentaNYL 100 MCG/2 ML SDV IVPUSH ONE (10:54)
[2024-02-12 12:59] VITALS: BP 108/63; PULSE 102
[2024-02-12] MEDS ORDERED: VANCOmycin 1 GM in Sodium Chloride 0.9% 250 ML IV SCH (19:00)
== END 2024-02-12 13:19 | disposition left against medical advice (07) | DRG 872 ==
LOC: DL.ED 13:12 → DL.MS 18:20 → UNDOADMIN 18:20 → DL.MS 19:42
PROVIDERS: ADMIT Internal Medicine; ATTEND Internal Medicine
DX: L03.115 Cellulitis of right lower limb (principal); A41.9 Sepsis, unspecified organism; E87.1 Hypo-osmolality and hyponatremia; Z79.899 Other long term (current) drug therapy; L03.113 Cellulitis of right upper limb; L03.116 Cellulitis of left lower limb; H54.7 Unspecified visual loss; E86.0 Dehydration; D64.9 Anemia, unspecified; F15.10 Other stimulant abuse, uncomplicated; M19.90 Unspecified osteoarthritis, unspecified site; F17.210 Nicotine dependence, cigarettes, uncomplicated; F13.10 Sedative, hypnotic or anxiolytic abuse, uncomplicated; K21.9 Gastro-esophageal reflux disease without esophagitis; E87.8 Other disorders of electrolyte and fluid balance, not elsewhere classified; Z53.29 Procedure and treatment not carried out because of patient's decision for other reasons; Z88.0 Allergy status to penicillin; Z86.16 Personal history of COVID-19; Z88.5 Allergy status to narcotic agent; Z88.6 Allergy status to analgesic agent; Z87.81 Personal history of (healed) traumatic fracture; Z88.8 Allergy status to other drugs, medicaments and biological substances
CPT/HCPCS: 36415; 80053; 80305; 83036; 83605; 84145; 85025; 86140; 87040 ×2; 96365; 99284 ×2; J7030; J7050 ×2; 80202; 83735; A9270-GY; J0295; J1100; J1200; J1650; J1885; J3490

== ENCOUNTER 2024-05-18 06:10 | Emergency (ER) | payer OTHER, MEDICAID ==
[2024-05-18] MEDS: Famotidine 20 MG/2 ML SDV IVPUSH ONE (06:43)
[2024-05-18] MEDS: diphenhydrAMINE 50 MG/ML SDV IVPUSH ONE (06:43)
[2024-05-18] MEDS: methylPREDNISolone Sodium Succinate 125 MG/2 ML SDV IVPUSH ONE (06:43)
[2024-05-18] MEDS: Lactated Ringers 1,000 ML IV ONE (06:44)
[2024-05-18 06:48] LABS: BASOPHILS PERCENT AUTO 0.4 % (0.0-1.0); EOSINOPHILS PERCENT AUTO 0.7 % (1.0-3.0); HEMATOCRIT 35.5 % (37.0-47.0); HEMOGLOBIN 11.1 g/dL (12.0-16.0); LYMPHOCYTES PERCENT AUTO 32.1 % (20.5-50.1); MEAN CORPUSCULAR HEMOGLOBIN 25.8 pg (27.0-34.0); MEAN CORPUSCULAR HGB CONC 31.3 g/dL (33.0-35.0); MEAN CORPUSCULAR VOLUME 82.6 fL (80-100); MONOCYTES PERCENT AUTO 8.5 % (2-8); NEUTROPHILS PERCENT AUTO 58.3 % (42.2-75.2); PLATELET COUNT,PLT 375 10^3/uL (150-450)
[2024-05-18 07:00] VITALS: BP 127/75; PULSE 112
[2024-05-18 07:08] LABS: A/G RATIO 0.9; ALBUMIN 3.6 g/dL (3.4-5.0); ANION GAP 16.2 mEq/L (7-13); BILIRUBIN TOTAL 0.5 mg/dL (0.2-1.0); CALCIUM 9.3 mg/dL (8.5-10.1); CREATININE 1.25 mg/dL (0.55-1.02); EST CRCL DRUG DOSING (CG) 57.33 mL/min; POTASSIUM,K 4.2 mmol/L (3.5-5.1); PROTEIN TOTAL,TP 7.5 g/dL (6.4-8.2)
== END 2024-05-18 07:46 | disposition home or self-care (01) ==
LOC: DL.ED 06:10
DX: R21 Rash and other nonspecific skin eruption (principal); T36.0X5A Adverse effect of penicillins, initial encounter; F15.10 Other stimulant abuse, uncomplicated; F17.210 Nicotine dependence, cigarettes, uncomplicated; Z88.5 Allergy status to narcotic agent; Z88.0 Allergy status to penicillin; Z88.8 Allergy status to other drugs, medicaments and biological substances; Z86.16 Personal history of COVID-19
CPT/HCPCS: 36415; 80053; 85025; 96361; 96374; 96375; 99283; J1200; J2919; J7120; 99284

== ENCOUNTER 2024-08-03 11:16 | Emergency (ER) | payer MEDICAID, OTHER ==
[2024-08-03 11:24] VITALS: BP 110/78
[2024-08-03 11:40] VITALS: PULSE 107
== END 2024-08-03 11:43 | disposition home or self-care (01) ==
LOC: DL.ED 11:16
DX: J68.4 Chronic respiratory conditions due to chemicals, gases, fumes and vapors (principal); E66.9 Obesity, unspecified; K21.9 Gastro-esophageal reflux disease without esophagitis; Z88.5 Allergy status to narcotic agent; Z88.8 Allergy status to other drugs, medicaments and biological substances; Z88.0 Allergy status to penicillin; Z79.899 Other long term (current) drug therapy; Z86.16 Personal history of COVID-19
CPT/HCPCS: 99283

== ENCOUNTER 2024-12-23 14:02 | Emergency (ER) | payer MEDICAID, OTHER ==
[2024-12-23] MEDS: Take Home: Clindamycin HCl 150 MG, 12 Cap Pack PO ONE (14:33)
[2024-12-23 14:50] VITALS: BP 96/67; PULSE 101
[2024-12-23] MEDS: Lidocaine 2% with EPINEPHrine 1:200,000 20 ML SDV INJECT ONE (14:51)
== END 2024-12-23 14:50 | disposition home or self-care (01) ==
LOC: DL.ED 14:02
DX: L02.413 Cutaneous abscess of right upper limb (principal); K21.9 Gastro-esophageal reflux disease without esophagitis; Z88.5 Allergy status to narcotic agent; Z88.0 Allergy status to penicillin; Z88.8 Allergy status to other drugs, medicaments and biological substances; Z86.16 Personal history of COVID-19
CPT/HCPCS: 10060; 87070; 99283; A9270; J2004; 87077; 87186

== ENCOUNTER 2025-01-01 21:53 | Emergency (ER) | payer MEDICAID, OTHER ==
[2025-01-01] MEDS ORDERED: Sodium Chloride 0.9% 10 ML Syringe FLUSH PRN (22:26)
[2025-01-01 22:34] LABS: BASOPHILS PERCENT AUTO 0.4 % (0.0-1.0); EOSINOPHILS PERCENT AUTO 0.5 % (1.0-3.0); LYMPHOCYTES PERCENT AUTO 9.1 % (20.5-50.1); MONOCYTES PERCENT AUTO 3.4 % (2-8); NEUTROPHILS PERCENT AUTO 86.6 % (42.2-75.2); PLATELET COUNT,PLT 277 10^3/uL (150-450); RED BLOOD CELL COUNT 4.06 10^6/uL (4.2-5.4); WHITE BLOOD CELL COUNT,WBC 10.9 10^3/uL (5.0-10.0)
[2025-01-01 22:36] LABS: APPEARANCE,URINE CLEAR (CLEAR); GLUCOSE,URINE NEGATIVE (NEGATIVE); OCCULT BLOOD,URINE NEGATIVE (NEGATIVE)
[2025-01-01 22:45] LABS: AMPHETAMINES,URINE POSITIVE (NEGATIVE); BARBITURATES,URINE NEGATIVE (NEGATIVE); MDMA (ECSTASY), URINE POSITIVE (NEGATIVE); METHAMPHETAMINES,URINE POSITIVE (NEGATIVE); OPIATES,URINE NEGATIVE (NEGATIVE); OXYCODONE,URINE NEGATIVE (NEGATIVE); PHENCYCLIDINE,URINE NEGATIVE (NEGATIVE); TCA,URINE NEGATIVE (NEGATIVE)
[2025-01-01 22:51] LABS: SQUAMOUS EPITHELIAL CELLS,UR MODERATE /HPF (NOT SEEN)
[2025-01-01 22:57] LABS: A/G RATIO 1.0; ALANINE AMINOTRANSFERASE,ALT 18 U/L (14-59); ASPARTATE AMNIOTRANSFERASE,AST 14 U/L (15-37); BILIRUBIN TOTAL 0.4 mg/dL (0.2-1.0); BLOOD UREA NITROGEN,BUN 19 mg/dL (7-18); CARBON DIOXIDE,CO2 23 mmol/L (21-32); CHLORIDE,CL 109 mmol/L (98-107); CREATININE 0.98 mg/dL (0.55-1.02); EST CRCL DRUG DOSING (CG) 72.36 mL/min; GLUCOSE RANDOM 128 mg/dL (70-99); POTASSIUM,K 4.5 mmol/L (3.5-5.1); PROTEIN TOTAL,TP 7.1 g/dL (6.4-8.2); SODIUM,NA 143 mmol/L (136-145)
[2025-01-01 22:58] LABS: ESTIMATED GFR 72 mL/min (>=60); ETHANOL BLOOD MEDICAL < 3 mg/dL (0)
[2025-01-01] MEDS: Furosemide 20 MG/2 ML VIAL IVPUSH ONE (23:33)
[2025-01-02 00:30] VITALS: BP 123/82; PULSE 111
== END 2025-01-02 00:15 | disposition home or self-care (01) ==
LOC: DL.ED 21:53
DX: J81.1 Chronic pulmonary edema (principal); I50.41 Acute combined systolic (congestive) and diastolic (congestive) heart failure; I51.9 Heart disease, unspecified; F17.210 Nicotine dependence, cigarettes, uncomplicated; Z88.5 Allergy status to narcotic agent; Z88.8 Allergy status to other drugs, medicaments and biological substances; Z88.0 Allergy status to penicillin; Z79.899 Other long term (current) drug therapy; Z86.16 Personal history of COVID-19
CPT/HCPCS: 36415; 71045; 80053; 80305; 80307; 81001; 81025; 83735; 83880; 84484; 85025; 85379; 93005; 93010; 96374; 99285; J1938; J7620; A9270-GY

== ENCOUNTER 2025-01-02 08:33 | Emergency (ER) | payer MEDICAID, OTHER ==
[2025-01-02 08:57] VITALS: BP 132/85; PULSE 89
[2025-01-02 10:10] LABS: BASOPHILS PERCENT AUTO 0.4 % (0.0-1.0); EOSINOPHILS PERCENT AUTO 0.3 % (1.0-3.0); LYMPHOCYTES PERCENT AUTO 14.9 % (20.5-50.1); MONOCYTES PERCENT AUTO 4.8 % (2-8); NEUTROPHILS PERCENT AUTO 79.6 % (42.2-75.2); PLATELET COUNT,PLT 313 10^3/uL (150-450); RED BLOOD CELL COUNT 4.87 10^6/uL (4.2-5.4); WHITE BLOOD CELL COUNT,WBC 10.6 10^3/uL (5.0-10.0)
[2025-01-02 10:29] LABS: A/G RATIO 1.0; ALANINE AMINOTRANSFERASE,ALT 23.0 U/L (14-59); ASPARTATE AMNIOTRANSFERASE,AST 16.0 U/L (15-37); BILIRUBIN TOTAL 1.1 mg/dL (0.2-1.0); BLOOD UREA NITROGEN,BUN 15.0 mg/dL (7-18); CARBON DIOXIDE,CO2 25.0 mmol/L (21-32); CHLORIDE,CL 103.0 mmol/L (98-107); CREATININE 1.06 mg/dL (0.55-1.02); EST CRCL DRUG DOSING (CG) 66.9 mL/min; GLUCOSE RANDOM 111.0 mg/dL (70-99); POTASSIUM,K 3.8 mmol/L (3.5-5.1); PROTEIN TOTAL,TP 9.1 g/dL (6.4-8.2); SODIUM,NA 141.0 mmol/L (136-145)
[2025-01-02 10:31] LABS: ESTIMATED GFR 66.0 mL/min (>=60)
== END 2025-01-02 10:47 | disposition home or self-care (01) ==
LOC: DL.ED 08:33
DX: I50.41 Acute combined systolic (congestive) and diastolic (congestive) heart failure (principal); K21.9 Gastro-esophageal reflux disease without esophagitis; Z88.5 Allergy status to narcotic agent; Z88.8 Allergy status to other drugs, medicaments and biological substances; Z88.0 Allergy status to penicillin; Z79.899 Other long term (current) drug therapy; Z86.16 Personal history of COVID-19
CPT/HCPCS: 36415; 80053; 85025; 99284

== ENCOUNTER 2025-02-12 03:29 | Emergency (ER) | payer MEDICAID ==
[2025-02-12 03:57] LABS: BASOPHILS PERCENT AUTO 0.4 % (0.0-1.0); EOSINOPHILS PERCENT AUTO 1.3 % (1.0-3.0); LYMPHOCYTES PERCENT AUTO 28.6 % (20.5-50.1); MONOCYTES PERCENT AUTO 8.0 % (2-8); NEUTROPHILS PERCENT AUTO 61.7 % (42.2-75.2); PLATELET COUNT,PLT 267 10^3/uL (150-450); RED BLOOD CELL COUNT 4.08 10^6/uL (4.2-5.4); WHITE BLOOD CELL COUNT,WBC 7.1 10^3/uL (5.0-10.0)
[2025-02-12 04:20] LABS: B-TYPE NATRIURETIC PEPTIDE,BNP 1190.0 pg/ml (0-100)
[2025-02-12 04:21] LABS: ALANINE AMINOTRANSFERASE,ALT 17.0 U/L (14-59); ASPARTATE AMNIOTRANSFERASE,AST 14.0 U/L (15-37); BILIRUBIN TOTAL 0.4 mg/dL (0.2-1.0); BLOOD UREA NITROGEN,BUN 14.0 mg/dL (7-18); CARBON DIOXIDE,CO2 25.0 mmol/L (21-32); CREATININE 1.19 mg/dL (0.55-1.02); EST CRCL DRUG DOSING (CG) 59.59 mL/min; GLUCOSE RANDOM 82.0 mg/dL (70-99); PROTEIN TOTAL,TP 6.6 g/dL (6.4-8.2)
[2025-02-12 04:25] LABS: A/G RATIO 1.0; ESTIMATED GFR 57.0 mL/min (>=60)
[2025-02-12 04:51] LABS: CHLORIDE,CL 108.0 mmol/L (98-107); POTASSIUM,K 4.0 mmol/L (3.5-5.1); SODIUM,NA 141.0 mmol/L (136-145)
[2025-02-12 05:02] VITALS: BP 112/74; PULSE 89
== END 2025-02-12 05:10 | disposition home or self-care (01) ==
LOC: DL.ED 03:29
DX: I11.0 Hypertensive heart disease with heart failure (principal); I50.9 Heart failure, unspecified; R79.89 Other specified abnormal findings of blood chemistry; E87.79 Other fluid overload; Z88.5 Allergy status to narcotic agent; Z88.0 Allergy status to penicillin; Z88.8 Allergy status to other drugs, medicaments and biological substances; Z79.82 Long term (current) use of aspirin; Z79.899 Other long term (current) drug therapy; K21.9 Gastro-esophageal reflux disease without esophagitis; Z86.16 Personal history of COVID-19
CPT/HCPCS: 36415; 71046; 80053; 83735; 83880; 84484; 85025; 87428; 93005; 93010; 99284; 99285; A9270